=== PATIENT | female | born 1970 | race Caucasian/White ===

== ENCOUNTER 2018-10-22 07:48 | Emergency (ER) | payer OTHER ==
[~2018-10-22] VITALS: Ht 175.3 cm; Wt 136.1 kg
[~2018-10-22 07:48] MED LIST: ABAT250V; ACETAMINOPHEN; ALPR.5; AMOX500 PO; ARIP15; AZIT250 PO; BACL10 PO; BENZ100A PO; BUTASPCAFT PO; CEPH500 PO; CIPR500 PO; CLAR500 PO; CRUTCH4 USE; CYCL10 PO; Cleocin HCl300 MG PO; DIPH50; DIPH50 PO; DOCU100 PO; DOXY100 PO; DULO30; DULO30 PO; Dicyclomine HCl10 MG PO; Flomax0.4 MG PO; GABA300 PO; HYDACE5 PO; HYDACE5325 PO; HYDHOMSY PO; HYDROCODONE; IBUP600 PO; IBUP800 PO; IBUPROFEN; KETO10 PO; LANS15EC PO; LIDO2L MM; META800 PO; METF500 PO; METO25 PO; NORT25 PO; Naprosyn500 MG PO; Norco 5-325 Ta1 EACH PO; OMEP20ER PO; OXYACE5T PO; PROM25 PO; Prednisone20 MG PO; RANI150EL PO; RXHYDACE PO; SERT100; SUMA25 PO; TAMS.4ER PO; TOPI100 PO; Ultram50 MG PO; Zofran Odt4 MG SL
[2018-10-22] MEDS ORDERED: Zofran4 MG PO (13:02)
[2018-10-22] MEDS ORDERED: Augmentin 875-1 EACH PO (13:02)
== END 2018-10-22 13:18 | disposition home or self-care (01) ==
LOC: ER 07:48
DX: N61.1 Abscess of the breast and nipple (principal); G43.909 Migraine, unspecified, not intractable, without status migrainosus; E11.9 Type 2 diabetes mellitus without complications; F17.210 Nicotine dependence, cigarettes, uncomplicated; Z88.0 Allergy status to penicillin; Z88.5 Allergy status to narcotic agent; Z79.899 Other long term (current) drug therapy
CPT/HCPCS: 19020; 99283-25

== ENCOUNTER 2018-10-24 11:56 | Emergency (ER) | payer SELFPAY ==
[~2018-10-24] VITALS: Ht 170.2 cm; Wt 136.1 kg
[~2018-10-24 11:56] MED LIST changes: +Augmentin 875-1 EACH PO; +Zofran4 MG PO
== END 2018-10-24 13:40 | disposition home or self-care (01) ==
LOC: ER 11:56
DX: N61.1 Abscess of the breast and nipple (principal); R03.0 Elevated blood-pressure reading, without diagnosis of hypertension; G43.909 Migraine, unspecified, not intractable, without status migrainosus; M54.9 Dorsalgia, unspecified; G89.29 Other chronic pain; F17.210 Nicotine dependence, cigarettes, uncomplicated; Z88.0 Allergy status to penicillin; Z88.6 Allergy status to analgesic agent; Z88.5 Allergy status to narcotic agent; Z88.8 Allergy status to other drugs, medicaments and biological substances
CPT/HCPCS: 99282

== ENCOUNTER 2019-12-24 14:23 | Emergency (ER) | payer SELFPAY ==
[~2019-12-24] VITALS: Ht 172.7 cm; Wt 145.2 kg
[2019-12-24 14:57] LABS: BASOPHILS ABSOLUTE AUTO 0.07 K/mm3 (0.00-0.23); BASOPHILS PERCENT AUTO 1 % (0-2); EOSINOPHILS ABSOLUTE AUTO 0.24 K/mm3 (0.00-0.68); EOSINOPHILS PERCENT AUTO 2 % (0-6); Hematocrit 43.5 % (33.0-51.0); IMMATURE GRAN ABSOLUTE AUTO 0.03 K/mm3 (0.00-0.10); IMMATURE GRAN PERCENT AUTO 0 % (0-1); LYMPHOCYTES ABSOLUTE AUTO 2.67 K/mm3 (0.84-5.20); LYMPHOCYTES PERCENT AUTO 23 % (21-46); MONOCYTES ABSOLUTE AUTO 0.77 K/mm3 (0.16-1.47); MONOCYTES PERCENT AUTO 7 % (4-13); Mean Corpuscular HGB 28.6 pg (26.0-34.0); Mean Corpuscular HGB Conc 32.2 g/dL (31.5-36.5); Mean Corpuscular Volume 89 fL (80-100); Mean Platelet Volume 10.3 fL (9.1-12.4); NEUTROPHILS ABSOLUTE AUTO 7.63 K/mm3 (1.96-9.15); NEUTROPHILS PERCENT AUTO 67 % (41-73); Platelet Count 355 K/mm3 (150-400); RDW Standard Deviation 42.4 fL (35.1-46.3); White Blood Cell Count 11.41 K/mm3 (4.00-11.30)
[2019-12-24 15:14] LABS: Alanine Aminotransfer (ALT/SGP 43 U/L (12-78); Albumin, Blood 3.5 g/dL (3.4-5.0); Albumin/Globulin Ratio 0.8 (0.8-1.8); Alk Phos 107 U/L (50-136); Anion Gap 5 mmol/L (6-16); Aspartate Aminotrans (AST/SGOT 29 U/L (12-37); Bilirubin, Total 0.2 mg/dL (0.1-1.0); Blood Urea Nitrogen 12 mg/dL (8-24); Bun/Creatinine Ratio 19.1 (12.0-20.0); CO2, Blood 26 mmol/L (21-32); Calcium, Blood 8.8 mg/dL (8.5-10.1); Chloride, Blood 108 mmol/L (98-108); Creatinine, Blood 0.63 mg/dL (0.40-1.00); Globulin, Blood 4.2 g/dL (2.2-4.0); Glomerular Filtration Rate >60 (60-); Glucose, Blood 251 mg/dL (70-99); Potassium, Blood 4.3 mmol/L (3.5-5.5); Sodium, Blood 139 mmol/L (136-145); Total Protein, Blood 7.7 g/dL (6.4-8.2)
[2019-12-24 16:03] LABS: Influenza A Negative (NEGATIVE); Influenza B Negative (NEGATIVE)
[2019-12-24] MEDS ORDERED: AZIT250 PO (16:33)
[2019-12-24] MEDS ORDERED: METPRE4DP PO (16:33)
[2019-12-24] MEDS ORDERED: BENZ100A PO (16:33)
[2019-12-24] MEDS ORDERED: Ventolin/Prove6.7 GM INH (16:33)
== END 2019-12-24 17:19 | disposition home or self-care (01) ==
LOC: ER 14:23
PROVIDERS: Physician Assistant
DX: R05 Cough (principal); R73.9 Hyperglycemia, unspecified; G43.909 Migraine, unspecified, not intractable, without status migrainosus; F17.210 Nicotine dependence, cigarettes, uncomplicated; Z88.0 Allergy status to penicillin; Z79.899 Other long term (current) drug therapy
CPT/HCPCS: 36415; 71046; 80053; 83036; 84484; 85025; 87804; 93005; 93010; 94640; 96361; 96374; 99284-25; J2930; J7030

== ENCOUNTER 2021-09-24 22:49 | Emergency (ER) | payer SELFPAY ==
[~2021-09-24] VITALS: Ht 170.2 cm; Wt 140.6 kg
[~2021-09-24 22:49] MED LIST changes: +Bactrim Ds Tab1 EACH PO; +METPRE4DP PO; +Robaxin-750750 MG PO; +Roxicodone5 MG PO; +Ventolin/Prove6.7 GM INH
[2021-09-25] MEDS ORDERED: CEPH500 PO (00:42)
== END 2021-09-25 01:11 | disposition home or self-care (01) ==
LOC: ER 22:49
DX: L03.011 Cellulitis of right finger (principal); G43.909 Migraine, unspecified, not intractable, without status migrainosus; F17.210 Nicotine dependence, cigarettes, uncomplicated; Z88.0 Allergy status to penicillin; Z88.6 Allergy status to analgesic agent; Z88.5 Allergy status to narcotic agent; Z91.048 Other nonmedicinal substance allergy status
CPT/HCPCS: 10060; 99282-25; A9270

== ENCOUNTER 2021-10-06 14:39 | Emergency (ER) | payer SELFPAY ==
[~2021-10-06] VITALS: Ht 170.2 cm; Wt 136.1 kg
[2021-10-06] MEDS ORDERED: CLIN300 PO (15:48)
== END 2021-10-06 16:06 | disposition home or self-care (01) ==
LOC: ER 14:39
DX: L03.011 Cellulitis of right finger (principal); G43.909 Migraine, unspecified, not intractable, without status migrainosus; Z88.0 Allergy status to penicillin; F17.210 Nicotine dependence, cigarettes, uncomplicated
CPT/HCPCS: 10060; 99282-25; A9270

== ENCOUNTER 2021-12-12 09:49 | Emergency (ER) | payer SELFPAY ==
[~2021-12-12] VITALS: Ht 172.7 cm; Wt 142.9 kg
[~2021-12-12 09:49] MED LIST changes: +CLIN300 PO
[2021-12-12] MEDS ORDERED: Zovirax Cream 5%2 GM TOP (10:44)
== END 2021-12-12 11:00 | disposition home or self-care (01) ==
LOC: ER 09:49
DX: B00.89 Other herpesviral infection (principal); G43.909 Migraine, unspecified, not intractable, without status migrainosus; E11.9 Type 2 diabetes mellitus without complications; Z88.0 Allergy status to penicillin; Z88.8 Allergy status to other drugs, medicaments and biological substances; F17.210 Nicotine dependence, cigarettes, uncomplicated
CPT/HCPCS: 99282

== ENCOUNTER 2022-06-17 09:13 | Emergency (ER) | payer SELFPAY ==
[~2022-06-17] VITALS: Ht 172.7 cm; Wt 129.3 kg
[~2022-06-17 09:13] MED LIST changes: +Zovirax Cream 5%2 GM TOP
[2022-06-17 10:13] LABS: Source, Urine Clean Catch
[2022-06-17 10:23] LABS: Appearance, Urine Clear (Clear); Bilirubin, Urine Neg (Neg); Blood, Urine Neg (Neg); Color, Urine Yellow (P-Yellow); Glucose Qualitative, Urine 4+ (Neg); Ketones, Urine 1+ (Neg); Leukocyte Esterase, Urine Neg (Neg); Nitrite, Urine Neg (Neg); Protein, Urine Neg (Neg); Urobilinogen, Urine NORM (Normal)
[2022-06-17] MEDS ORDERED: FLUC150A PO (11:03)
== END 2022-06-17 11:08 | disposition home or self-care (01) ==
LOC: ER 09:13
PROVIDERS: Student in an Organized Health Care Education/Training Program
DX: B37.3 Candidiasis of vulva and vagina (principal); E11.9 Type 2 diabetes mellitus without complications; F17.210 Nicotine dependence, cigarettes, uncomplicated
CPT/HCPCS: 81003; A9270

== ENCOUNTER 2022-07-28 11:49 | Emergency (ER) | payer SELFPAY ==
[~2022-07-28] VITALS: Ht 170.2 cm; Wt 130.2 kg
[~2022-07-28 11:49] MED LIST changes: +FLUC150A PO
[2022-07-28] MEDS ORDERED: ONDA4ODT MM (14:55)
== END 2022-07-28 15:14 | disposition home or self-care (01) ==
LOC: ER 11:49
DX: K52.9 Noninfective gastroenteritis and colitis, unspecified (principal); F17.210 Nicotine dependence, cigarettes, uncomplicated; Z20.822 Contact with and (suspected) exposure to COVID-19; Z88.0 Allergy status to penicillin; Z88.5 Allergy status to narcotic agent; Z88.8 Allergy status to other drugs, medicaments and biological substances; Z91.09 Other allergy status, other than to drugs and biological substances
CPT/HCPCS: 99284; A9270

== ENCOUNTER 2022-08-17 15:06 | Emergency (ER) | payer SELFPAY ==
[~2022-08-17] VITALS: Ht 170.2 cm; Wt 129.3 kg
[~2022-08-17 15:06] MED LIST changes: +ONDA4ODT MM
[2022-08-17] MEDS ORDERED: CEPH500 PO (16:26)
== END 2022-08-17 16:38 | disposition home or self-care (01) ==
LOC: ER 15:06
DX: N61.0 Mastitis without abscess (principal); F17.210 Nicotine dependence, cigarettes, uncomplicated; Z88.0 Allergy status to penicillin; Z88.6 Allergy status to analgesic agent; Z88.5 Allergy status to narcotic agent; Z88.8 Allergy status to other drugs, medicaments and biological substances; Z91.048 Other nonmedicinal substance allergy status
CPT/HCPCS: A9270

== ENCOUNTER 2023-02-11 17:25 | Emergency (ER) | payer SELFPAY ==
[~2023-02-11] VITALS: Ht 170.2 cm; Wt 123.4 kg
[2023-02-11 18:54] LABS: BASOPHILS ABSOLUTE AUTO 0.05 K/mm3 (0.00-0.23); BASOPHILS PERCENT AUTO 0 % (0-2); EOSINOPHILS ABSOLUTE AUTO 0.02 K/mm3 (0.00-0.68); EOSINOPHILS PERCENT AUTO 0 % (0-6); Hematocrit 46.2 % (33.0-51.0); Hemoglobin 15.7 g/dL (11.5-16.0); IMMATURE GRAN ABSOLUTE AUTO 0.05 K/mm3 (0.00-0.10); IMMATURE GRAN PERCENT AUTO 0 % (0-1); LYMPHOCYTES ABSOLUTE AUTO 2.82 K/mm3 (0.84-5.20); LYMPHOCYTES PERCENT AUTO 24 % (21-46); MONOCYTES ABSOLUTE AUTO 1.18 K/mm3 (0.16-1.47); MONOCYTES PERCENT AUTO 10 % (4-13); Mean Corpuscular Volume 85 fL (80-100); Mean Platelet Volume 9.9 fL (9.1-12.4); NEUTROPHILS PERCENT AUTO 66 % (41-73); Platelet Count 280 K/mm3 (150-400); RDW Coefficient Variation 12.6 % (11.7-14.2); RDW Standard Deviation 39.2 fL (35.1-46.3); Red Blood Cell Count 5.42 M/mm3 (3.80-5.20); White Blood Cell Count 12.02 K/mm3 (4.00-11.30)
[2023-02-11 19:01] LABS: Influenza A, PCR NEGATIVE (NEGATIVE); Influenza B, PCR NEGATIVE (NEGATIVE); Resp Syncytial Virus, PCR NEGATIVE (NEGATIVE); SARS-Cov-2 (COVID-19) PCR, MMC NEGATIVE (NEGATIVE)
[2023-02-11 19:10] LABS: Albumin/Globulin Ratio 0.7 (0.8-1.8); Bilirubin, Total 0.5 mg/dL (0.1-1.0); Bun/Creatinine Ratio 26.8 (12.0-20.0); Calcium, Blood 8.7 mg/dL (8.5-10.1); Creatinine, Blood 0.52 mg/dL (0.40-1.00); Globulin, Blood 4.2 g/dL (2.2-4.0); Magnesium, Blood 1.9 mg/dL (1.6-2.4); Potassium, Blood 4.4 mmol/L (3.5-5.5); Total Protein, Blood 7.2 g/dL (6.4-8.2)
[2023-02-11] MEDS ORDERED: Diflucan100 MG PO (20:17)
[2023-02-11] MEDS ORDERED: BENZ100A PO (20:17)
[2023-02-11] MEDS ORDERED: AMOCLA875 PO (20:17)
[2023-02-11 20:30] VITALS: BP 109/77
== END 2023-02-11 20:45 | disposition home or self-care (01) ==
LOC: ER 17:25
PROVIDERS: Physician Assistant
DX: J06.9 Acute upper respiratory infection, unspecified (principal); K04.7 Periapical abscess without sinus; J40 Bronchitis, not specified as acute or chronic; Z20.822 Contact with and (suspected) exposure to COVID-19; Z88.0 Allergy status to penicillin; Z88.5 Allergy status to narcotic agent; Z88.1 Allergy status to other antibiotic agents; Z91.048 Other nonmedicinal substance allergy status; G43.909 Migraine, unspecified, not intractable, without status migrainosus; F17.210 Nicotine dependence, cigarettes, uncomplicated
CPT/HCPCS: 0241U; 36415; 71046; 80053; 83735; 85025; 86308; 96374; 99283-25; A9270; J1885

== ENCOUNTER 2023-04-28 11:20 | Emergency (ER) | payer SELFPAY ==
[~2023-04-28] VITALS: Ht 172.7 cm; Wt 118.8 kg
[~2023-04-28 11:20] MED LIST changes: +AMOCLA875 PO; +Diflucan100 MG PO
[2023-04-28] MEDS ORDERED: SULTRIDS PO (14:55)
[2023-05-05] MEDS ORDERED: Clindamycin HC300 MG PO (14:48)
[2023-05-05] MEDS ORDERED: INSULANI SC (14:49)
[2023-05-05] MEDS ORDERED: LORCET 5-325 M1 EACH PO (14:49)
[2023-05-05] MEDS ORDERED: METF500 PO (14:50)
[2023-05-05] MEDS ORDERED: VISBIOME 112.51 EACH PO (14:50)
[2023-05-05] MEDS ORDERED: HUMALOG KW100 UNIT/1 SC (14:53)
[2023-05-05] MEDS ORDERED: Microlet1 EACH (14:54)
== END 2023-04-28 15:15 | disposition home or self-care (01) ==
LOC: ER 11:20
DX: N76.4 Abscess of vulva (principal); Z88.0 Allergy status to penicillin; Z88.5 Allergy status to narcotic agent; Z91.048 Other nonmedicinal substance allergy status; G43.909 Migraine, unspecified, not intractable, without status migrainosus; F17.210 Nicotine dependence, cigarettes, uncomplicated
CPT/HCPCS: 56405; 96372-59; 99283-25; A9270; J1885

== ENCOUNTER → 2023-05-23 | Outpatient (CLI) | payer SELFPAY ==
[~2023-05-23] MED LIST changes: +Clindamycin HC300 MG PO; +HUMALOG KW100 UNIT/1 SC; +INSULANI SC; +LORCET 5-325 M1 EACH PO; +Microlet1 EACH; +SULTRIDS PO; +VISBIOME 112.51 EACH PO
[2023-05-23 15:46] LABS: Candida species (DNA Probe) Negative (NEGATIVE); G. vaginalis (DNA Probe) Negative (NEGATIVE); T. vaginalis (DNA Probe) Negative (NEGATIVE)
== END | disposition home or self-care (01) ==
LOC: LAB 12:08 → LAB SHORT 12:08
PROVIDERS: Physician Assistant
DX: L29.3 Anogenital pruritus, unspecified (principal); R30.0 Dysuria
CPT/HCPCS: 87077; 87086; 87186; 87480; 87510; 87660

== ENCOUNTER 2023-08-30 12:59 | Inpatient (IN) | payer SELFPAY ==
[~2023-08-30] VITALS: Ht 172.7 cm; Wt 117.5 kg
[2023-08-30 15:06] LABS: Albumin/Globulin Ratio 0.6 (0.8-1.8); Bilirubin, Total 0.3 mg/dL (0.1-1.0); Bun/Creatinine Ratio 18.4 (12.0-20.0); Calcium, Blood 8.8 mg/dL (8.5-10.1); Creatinine, Blood 0.71 mg/dL (0.40-1.00); Globulin, Blood 4.9 g/dL (2.2-4.0); Potassium, Blood 3.9 mmol/L (3.5-5.5); Total Protein, Blood 7.9 g/dL (6.4-8.2)
[2023-08-30 18:15] LABS: BASOPHILS ABSOLUTE AUTO 0.09 K/mm3 (0.00-0.23); BASOPHILS PERCENT AUTO 1 % (0-2); EOSINOPHILS ABSOLUTE AUTO 0.35 K/mm3 (0.00-0.68); EOSINOPHILS PERCENT AUTO 2 % (0-6); Hematocrit 37.8 % (33.0-51.0); Hemoglobin 12.5 g/dL (11.5-16.0); IMMATURE GRAN ABSOLUTE AUTO 0.07 K/mm3 (0.00-0.10); IMMATURE GRAN PERCENT AUTO 0 % (0-1); LYMPHOCYTES ABSOLUTE AUTO 3.36 K/mm3 (0.84-5.20); LYMPHOCYTES PERCENT AUTO 21 % (21-46); MONOCYTES ABSOLUTE AUTO 1.17 K/mm3 (0.16-1.47); MONOCYTES PERCENT AUTO 7 % (4-13); Mean Corpuscular HGB 28.3 pg (26.0-34.0); Mean Corpuscular HGB Conc 33.1 g/dL (31.5-36.5); Mean Corpuscular Volume 86 fL (80-100); Mean Platelet Volume 9.5 fL (9.1-12.4); NEUTROPHILS ABSOLUTE AUTO 11.23 K/mm3 (1.96-9.15); NEUTROPHILS PERCENT AUTO 69 % (41-73); Platelet Count 358 K/mm3 (150-400); RDW Coefficient Variation 12.8 % (11.7-14.2); RDW Standard Deviation 39.8 fL (35.1-46.3); Red Blood Cell Count 4.42 M/mm3 (3.80-5.20); White Blood Cell Count 16.27 K/mm3 (4.00-11.30)
[2023-08-30 20:34] VITALS: BP 109/62
[2023-08-30] MEDS ORDERED: TRAZ100 PO (21:20)
[2023-08-30] MEDS ORDERED: GABA100 PO (21:21)
[2023-08-30] MEDS ORDERED: ATOR40TA PO (21:21)
[2023-08-30] MEDS ORDERED: VENL150ER PO (21:22)
--- NOTE | 2023-08-31 04:37 | NUR ---
SHIFT SUMMARY PATIENT IS ALERT AND ORIENTED. PATIENT HAS HAD NO ACUTE EVENTS THIS SHIFT. VITAL SIGNS REVIEWED. PATIENT IS ADMITTED FOR CELLULITIS. PATIENT REPORTS PAIN THIS SHIFT. MEDICATED PER EMAR. PATIENT HAS HAD NO COMPLAINTS OF SOB, NAUSEA OR VOMITTING. PATIENT IS IND IN ROOM. IV FLUIDS INFUSING ORDERED. BED IN LOCKED AND LOWEST POSITION. CALL LIGHT IN PLACE. WILL MONITOR UNTIL SHIFT CHANGE.
[2023-08-31 04:59] VITALS: BP 119/72
[2023-08-31 06:28] LABS: BASOPHILS ABSOLUTE AUTO 0.06 K/mm3 (0.00-0.23); BASOPHILS PERCENT AUTO 1 % (0-2); EOSINOPHILS ABSOLUTE AUTO 0.43 K/mm3 (0.00-0.68); EOSINOPHILS PERCENT AUTO 4 % (0-6); Hematocrit 37.2 % (33.0-51.0); Hemoglobin 12.1 g/dL (11.5-16.0); IMMATURE GRAN ABSOLUTE AUTO 0.04 K/mm3 (0.00-0.10); IMMATURE GRAN PERCENT AUTO 0 % (0-1); LYMPHOCYTES ABSOLUTE AUTO 2.69 K/mm3 (0.84-5.20); LYMPHOCYTES PERCENT AUTO 24 % (21-46); MONOCYTES ABSOLUTE AUTO 1.01 K/mm3 (0.16-1.47); MONOCYTES PERCENT AUTO 9 % (4-13); Mean Corpuscular HGB 27.9 pg (26.0-34.0); Mean Corpuscular HGB Conc 32.5 g/dL (31.5-36.5); Mean Corpuscular Volume 86 fL (80-100); Mean Platelet Volume 9.5 fL (9.1-12.4); NEUTROPHILS ABSOLUTE AUTO 6.98 K/mm3 (1.96-9.15); NEUTROPHILS PERCENT AUTO 62 % (41-73); Platelet Count 345 K/mm3 (150-400); RDW Coefficient Variation 12.7 % (11.7-14.2); RDW Standard Deviation 39.7 fL (35.1-46.3); Red Blood Cell Count 4.34 M/mm3 (3.80-5.20); White Blood Cell Count 11.21 K/mm3 (4.00-11.30)
[2023-08-31 06:53] LABS: Bun/Creatinine Ratio 21.2 (12.0-20.0); Calcium, Blood 8.5 mg/dL (8.5-10.1); Creatinine, Blood 0.71 mg/dL (0.40-1.00); Magnesium, Blood 2.2 mg/dL (1.6-2.4); Potassium, Blood 3.8 mmol/L (3.5-5.5)
[2023-08-31 07:38] VITALS: BP 119/65
--- NOTE | 2023-08-31 09:00 | NUR ---
Pt laying in bed awake a/ox4, pleasant and coopertive with care, follows commands well, reports pain, will medicate as ordered, lungs are clear t/o, resp even and unlabored, no cough noted, hrr, no edema noted, ppp+2, cap refill <3 sec, vs stable, afebrile, iv sites are clear, one to hand blew, was removed intact still has 22 to lfa, flushes well, called pcu for power glide as she has vanco, btx4, abd flat soft nontender, voids without diff, skin c/w/d, except right breast is very red on the top, was outlined, mary nielson call light in reach.
[2023-08-31 15:48] VITALS: BP 151/80
--- NOTE | 2023-08-31 18:05 | NUR ---
pt responded well to fentanyl, 25mcg controled her pain, also gave percocet several times, she is in the shower at this time, her spouce is her with her. redness on breast is less red this early evening. call light in reach.
--- NOTE | 2023-08-31 18:48 | NUR ---
pt states breast opened up and started draining pus when in the hot shower, notified Dr. Lopez and sent a culture. no further changes, call light in reach.
[2023-08-31 20:03] VITALS: BP 159/104
[2023-09-01 04:29] VITALS: BP 134/71
--- NOTE | 2023-09-01 04:56 | NUR ---
SHIFT SUMMARY PATIENT IS ALERT AND ORIENTED. PATIENT HAS HAD NO ACUTE EVENTS THIS SHIFT. VITAL SIGNS REVIEWED. PATIENT HAS BEEN IND AND COMMUNICATIVE OF NEEDS EFFECTIVELY. PATIENT HAS COMPLAINED OF PAIN AND MEDICATED PER EMAR. PATIENT HAS NOT COMPLAINED OF SOB, NAUSEA, VOMITTING THIS SHIFT. BED IN LOCKED AND LOWEST POSITION. CALL LIGHT IN PLACE. WILL MONITOR UNTIL SHIFT CHANGE.
[2023-09-01 07:16] VITALS: BP 138/97
[2023-09-01 09:33] LABS: BASOPHILS ABSOLUTE AUTO 0.07 K/mm3 (0.00-0.23); BASOPHILS PERCENT AUTO 1 % (0-2); EOSINOPHILS ABSOLUTE AUTO 0.42 K/mm3 (0.00-0.68); EOSINOPHILS PERCENT AUTO 5 % (0-6); Hematocrit 38.3 % (33.0-51.0); Hemoglobin 12.6 g/dL (11.5-16.0); IMMATURE GRAN ABSOLUTE AUTO 0.04 K/mm3 (0.00-0.10); IMMATURE GRAN PERCENT AUTO 0 % (0-1); LYMPHOCYTES ABSOLUTE AUTO 2.73 K/mm3 (0.84-5.20); LYMPHOCYTES PERCENT AUTO 29 % (21-46); MONOCYTES PERCENT AUTO 8 % (4-13); Mean Corpuscular HGB 28.4 pg (26.0-34.0); Mean Corpuscular HGB Conc 32.9 g/dL (31.5-36.5); Mean Corpuscular Volume 86 fL (80-100); Mean Platelet Volume 9.6 fL (9.1-12.4); NEUTROPHILS ABSOLUTE AUTO 5.31 K/mm3 (1.96-9.15); NEUTROPHILS PERCENT AUTO 57 % (41-73); Platelet Count 368 K/mm3 (150-400); RDW Coefficient Variation 12.6 % (11.7-14.2); RDW Standard Deviation 39.8 fL (35.1-46.3); Red Blood Cell Count 4.44 M/mm3 (3.80-5.20); White Blood Cell Count 9.27 K/mm3 (4.00-11.30)
[2023-09-01 10:00] LABS: Anion Gap 5 mmol/L (6-16); Blood Urea Nitrogen 11 mg/dL (8-24); Bun/Creatinine Ratio 18.9 (12.0-20.0); CO2, Blood 25 mmol/L (21-32); Calcium, Blood 8.2 mg/dL (8.5-10.1); Chloride, Blood 110 mmol/L (98-108); Creatinine, Blood 0.58 mg/dL (0.40-1.00); Glomerular Filtration Rate 110 (60-); Glucose, Blood 206 mg/dL (70-99); Potassium, Blood 4.1 mmol/L (3.5-5.5); Sodium, Blood 140 mmol/L (136-145)
[2023-09-01 15:47] VITALS: BP 151/108
--- NOTE | 2023-09-01 18:04 | NUR ---
SHIFT SUMMARY NO ACUTE CHANGES THIS SHIFT. PAIN MANAGED W/ OXY, MORPHINE, AND TYLENOL. CALL LIGHT WITHIN REACH AND PT ABLE TO MAKE NEEDS KNOWN.
[2023-09-01 19:34] VITALS: BP 120/71
--- NOTE | 2023-09-02 04:03 | NUR ---
SHIFT SUMMARY PATIENT IS ALERT AND ORIENTED. PATIENT HAS HAD NO ACUTE EVENTS THIS SHIFT. VITAL SIGNS REVIEWED. PATIENT HAS BEEN MEDICATED FOR PAIN MULTIPLE TIMES THIS SHIFT FOR CELLULITIS. PATIENT HAS NOT COMPLAINED OF SOB, NAUSEA, OR VOMITTING THIS SHIFT. IV FLUIDS INFUSING ORDERED. BED IN LOCKED AND LOWEST POSITION. CALL LIGHT IN PLACE.
[2023-09-02 04:37] VITALS: BP 110/79
[2023-09-02 08:03] VITALS: BP 132/90
--- NOTE | 2023-09-02 14:27 | NUR ---
pt complains of pain, medicated as ordered, and set up heating pad. no further needs at this time. call light in reach.
[2023-09-02 15:12] VITALS: BP 153/92
--- NOTE | 2023-09-02 18:11 | NUR ---
pt started on a heating pad for comfort, no drainage today, will take a shower in a bit, no changes in the shade of red on her breast. call light in reach.
[2023-09-02 19:44] VITALS: BP 164/105
[2023-09-03 03:31] VITALS: BP 130/67
--- NOTE | 2023-09-03 04:57 | NUR ---
SHIFT SUMMARY NOC PT A/O X 4. PLEASANT AND COOPERATIVE WITH CARE. DURING EVENING VS PT REPORTED EXTREME PAIN THAT FELT LIKE A SHOCK IN ARM, PT HAS CELLULITIS IN R BREAST. PT WAS MEDICATED PER EMAR. PT IS RECEIVING CEFEPIME/VANCO FOR INFECTION THAT LAB IS STILL PENDING ON. PT HAS PG IN [place] INFUSING NS @ 100 ML/HR. PT HS CBG 138 AND A SNACK AND 40 UNITS SCHEDULED LONG ACTING INSULIN GIVEN. PT HAS BORDER AROUND INFECTION SITE, WHICH APPEARS DARK RED AND PT STATES THAT IS MORE PAINFUL. PT IS IN CONTACT ISOLATION FOR HX OF MRSA. PT IS CURRENTLY RESTING WITH BED IN LOWEST POSITION, AND CALL LIGHT WITHIN REACH.
[2023-09-03 05:47] LABS: BASOPHILS ABSOLUTE AUTO 0.05 K/mm3 (0.00-0.23); BASOPHILS PERCENT AUTO 1 % (0-2); EOSINOPHILS ABSOLUTE AUTO 0.34 K/mm3 (0.00-0.68); EOSINOPHILS PERCENT AUTO 5 % (0-6); Hemoglobin 11.4 g/dL (11.5-16.0); IMMATURE GRAN ABSOLUTE AUTO 0.03 K/mm3 (0.00-0.10); IMMATURE GRAN PERCENT AUTO 0 % (0-1); LYMPHOCYTES ABSOLUTE AUTO 2.26 K/mm3 (0.84-5.20); LYMPHOCYTES PERCENT AUTO 30 % (21-46); MONOCYTES ABSOLUTE AUTO 0.61 K/mm3 (0.16-1.47); MONOCYTES PERCENT AUTO 8 % (4-13); Mean Corpuscular HGB 27.9 pg (26.0-34.0); Mean Corpuscular HGB Conc 32.6 g/dL (31.5-36.5); Mean Corpuscular Volume 86 fL (80-100); Mean Platelet Volume 9.8 fL (9.1-12.4); NEUTROPHILS ABSOLUTE AUTO 4.18 K/mm3 (1.96-9.15); NEUTROPHILS PERCENT AUTO 56 % (41-73); Platelet Count 367 K/mm3 (150-400); RDW Coefficient Variation 12.7 % (11.7-14.2); RDW Standard Deviation 39.6 fL (35.1-46.3); Red Blood Cell Count 4.08 M/mm3 (3.80-5.20); White Blood Cell Count 7.47 K/mm3 (4.00-11.30)
[2023-09-03 07:47] VITALS: BP 149/91
[2023-09-03 08:17] LABS: Anion Gap 15 mmol/L (6-16); Blood Urea Nitrogen 15 mg/dL (8-24); Bun/Creatinine Ratio 22.8 (12.0-20.0); CO2, Blood 14 mmol/L (21-32); Calcium, Blood 8.5 mg/dL (8.5-10.1); Chloride, Blood 112 mmol/L (98-108); Creatinine, Blood 0.66 mg/dL (0.40-1.00); Glomerular Filtration Rate 106 (60-); Glucose, Blood 154 mg/dL (70-99); Phosphorus, Blood 4.6 mg/dL (2.5-4.9); Potassium, Blood 4.3 mmol/L (3.5-5.5); Sodium, Blood 141 mmol/L (136-145)
[2023-09-03 10:53] LABS: Vancomycin, Trough 18.4 ug/mL (5.0-10.0)
[2023-09-03 13:20] LABS: Albumin, Blood 2.7 g/dL (3.4-5.0)
[2023-09-03 15:56] VITALS: BP 132/93
--- NOTE | 2023-09-03 17:21 | NUR ---
PT TRANSFERRED TO [facility] VIA GURNY, BED TO BED TX RELATED TO PT IMMOBILITY. MEDICATED WITH ROXONOL 10MG PRIOR TO TX. CALLED REPORT TO ANAT AT 1445, PT TRANSPORTED 1545 WITH BAG OF BELONGINGS. CHECKED SKIN PRIOR TO TX AND CHANGED ATTENDS. NO REDNESS ON BOTTOM.
--- NOTE | 2023-09-03 19:48 | NUR ---
SUMMARY- PT A/O X4, INDEPENDANT IN THE ROOM, STEADY ON FEET. TOOK A SHOWER TODAY FOR 15MINUTES AND LET HOT WATER RUN OVER CHEST. ATTEMPTED TO PRESS THE BOIL, BUT STATES NOTHING CAME OUT. R BREAST REMAINS RED, RAISED AND WARM, PT STATES IT HAS IMPROVED AND SMALLER AND LESS HARD. PT STATES AREA VERY PAINFUL AND REQUESTING OXYCODONE 10MG Q4, ALTERNATING MORPHINE 4MG Q4. STATES THIS REGIMINE WORKS. BLOOD SUGARS STABLE. POWERLIDE FOR ABX. VOIDING, HAD BM TODAY. REPORTED ALL TO FABBY CORTES.
[2023-09-04 04:36] VITALS: BP 117/90
--- NOTE | 2023-09-04 06:16 | NUR ---
CLIFF VILLALPANDO, PT AT THIS TIME APPEARS TO BE ASLEEP. PT MEDICATED SEVERAL TIMES THIS NIGHT. PT ABLE TO GET UP SAFELY TO BR TO VOID BY SELF PT SNORRING VERY LIGHTLY WHEN ASLEEP. CALL LIGHT IN REACH.
[2023-09-04 07:15] VITALS: BP 149/92
[2023-09-04 15:15] VITALS: BP 148/112
--- NOTE | 2023-09-04 18:45 | NUR ---
SUMMARY- PT A/O X4, INDEPENDANT IN ROOM. CONT ABX FOR R BREAST CELLULITIS, NODULE SOFTER AND SMALLER, LESS RED, STILL HAS NOT POPPED. PAIN CONTROLLED WITH OXYCODONE 15MG APPROX Q4, AND ADDED TORADOL X 2 DOSES THIS SHIFT. HAS NOT NEEDED ANY IV MORPHINE FOR BTP. TOLERATING FOOD AND FLUID. REPORTED MIGRAINE THIS AM RADIATING INTO TEETH. STATES PAIN RESOLVED AFTER TORADOL AND TYLENOL GIVEN THIS AM. WILL REPORT TO FABBY CORTES.
[2023-09-04 19:52] VITALS: BP 131/87
[2023-09-05] VITALS (15 sets, daily range): BP systolic 121–188; BP diastolic 64–112
--- NOTE | 2023-09-05 02:54 | NUR ---
SHIFT SUMMERY, PT RESTING IN BED, PT ABLE TO GET UP BY SELF TO VOID. PT STEADY ON HER FEET. PT HAD WARM SHOWER TONIGHT. PT MEDICTED FOR PAIN. PT HAD BOSTON WELL BACK AND RIGHT BREAST PAIN. PT AT THIS TIME TRYING TO GO BACK TO SLEEP. PT MEDICATED WITH TORIDOL. CALL LIGHT IN REACH.
[2023-09-05 06:07] LABS: BASOPHILS ABSOLUTE AUTO 0.07 K/mm3 (0.00-0.23); BASOPHILS PERCENT AUTO 1 % (0-2); EOSINOPHILS ABSOLUTE AUTO 0.46 K/mm3 (0.00-0.68); EOSINOPHILS PERCENT AUTO 5 % (0-6); Hematocrit 36.4 % (33.0-51.0); Hemoglobin 11.6 g/dL (11.5-16.0); IMMATURE GRAN ABSOLUTE AUTO 0.06 K/mm3 (0.00-0.10); IMMATURE GRAN PERCENT AUTO 1 % (0-1); LYMPHOCYTES ABSOLUTE AUTO 2.93 K/mm3 (0.84-5.20); LYMPHOCYTES PERCENT AUTO 34 % (21-46); MONOCYTES ABSOLUTE AUTO 0.63 K/mm3 (0.16-1.47); MONOCYTES PERCENT AUTO 7 % (4-13); Mean Corpuscular HGB 27.9 pg (26.0-34.0); Mean Corpuscular HGB Conc 31.9 g/dL (31.5-36.5); Mean Corpuscular Volume 88 fL (80-100); Mean Platelet Volume 9.5 fL (9.1-12.4); NEUTROPHILS PERCENT AUTO 52 % (41-73); Platelet Count 367 K/mm3 (150-400); RDW Coefficient Variation 12.9 % (11.7-14.2); Red Blood Cell Count 4.16 M/mm3 (3.80-5.20); White Blood Cell Count 8.65 K/mm3 (4.00-11.30)
[2023-09-05 06:23] LABS: Albumin, Blood 2.4 g/dL (3.4-5.0); Anion Gap 1 mmol/L (6-16); Blood Urea Nitrogen 12 mg/dL (8-24); Bun/Creatinine Ratio 15.3 (12.0-20.0); CO2, Blood 31 mmol/L (21-32); Calcium, Blood 8.5 mg/dL (8.5-10.1); Chloride, Blood 112 mmol/L (98-108); Creatinine, Blood 0.79 mg/dL (0.40-1.00); Glomerular Filtration Rate 91 (60-); Glucose, Blood 151 mg/dL (70-99); Phosphorus, Blood 4.7 mg/dL (2.5-4.9); Potassium, Blood 4.2 mmol/L (3.5-5.5); Sodium, Blood 144 mmol/L (136-145)
--- NOTE | 2023-09-05 16:25 | NUR ---
LATE ENTRY/1600: PT TO OR [facility] FOR SURG ON R BREAST CELLULITIS ABCESS.
--- NOTE | 2023-09-05 18:11 | NUR ---
RETURNED FROM OR RECEIVED REPORT FROM SIM CORTES. PT TO ROOM, MADE COMFORTABLE. VSS. R BREAST I&D SITE DRESSING C/D/I. PT ALERT, AWAKE & HUNGRY. DINNER TRAY GIVEN TO PT.
--- NOTE | 2023-09-05 18:22 | NUR ---
SHIFT REPORT A&O X 4, VSS. IS PLEASANT & COOPERATIVE WITH ALL CARE. MEDICATED FOR PAIN PER EMAR WITH GOOD RELIEF STATED BY PT. TO SURG THIS AFTERNOON, RETURNED AFTER I&D OF R BREAST, DRESSING C/D/I. IS EATING DINNER. VSS. ON RA SATS 96-100%. IS INDEPENDENT IN THE ROOM FOR RESTROOM USE. CALL LIGHT WITHIN REACH, BED IN LOW POSITION.
--- NOTE | 2023-09-05 18:53 | NUR ---
WHEN PT TRANSFERED TO [address] FLOOR SHE AMBULATED TO BATHROOM FROM THE [facility]. I LET HER RN KNOW THAT SHE WAS IN THE BATHROOM . SHE AMBULATED WITH STEADY GAIT AND DENIES ANY TROUBLE
[2023-09-06 01:21] LABS: BASOPHILS ABSOLUTE AUTO 0.08 K/mm3 (0.00-0.23); BASOPHILS PERCENT AUTO 1 % (0-2); EOSINOPHILS ABSOLUTE AUTO 0.34 K/mm3 (0.00-0.68); EOSINOPHILS PERCENT AUTO 4 % (0-6); Hematocrit 34.5 % (33.0-51.0); Hemoglobin 11.3 g/dL (11.5-16.0); IMMATURE GRAN ABSOLUTE AUTO 0.08 K/mm3 (0.00-0.10); IMMATURE GRAN PERCENT AUTO 1 % (0-1); LYMPHOCYTES ABSOLUTE AUTO 2.79 K/mm3 (0.84-5.20); LYMPHOCYTES PERCENT AUTO 30 % (21-46); MONOCYTES ABSOLUTE AUTO 0.73 K/mm3 (0.16-1.47); MONOCYTES PERCENT AUTO 8 % (4-13); Mean Corpuscular HGB 28.3 pg (26.0-34.0); Mean Corpuscular HGB Conc 32.8 g/dL (31.5-36.5); Mean Corpuscular Volume 86 fL (80-100); Mean Platelet Volume 9.5 fL (9.1-12.4); NEUTROPHILS ABSOLUTE AUTO 5.44 K/mm3 (1.96-9.15); NEUTROPHILS PERCENT AUTO 58 % (41-73); Platelet Count 353 K/mm3 (150-400); RDW Standard Deviation 40.6 fL (35.1-46.3); White Blood Cell Count 9.46 K/mm3 (4.00-11.30)
[2023-09-06 01:38] LABS: Albumin, Blood 2.6 g/dL (3.4-5.0); Anion Gap 5 mmol/L (6-16); Blood Urea Nitrogen 10 mg/dL (8-24); CO2, Blood 30 mmol/L (21-32); Calcium, Blood 8.4 mg/dL (8.5-10.1); Chloride, Blood 107 mmol/L (98-108); Creatinine, Blood 0.72 mg/dL (0.40-1.00); Glomerular Filtration Rate 101 (60-); Glucose, Blood 187 mg/dL (70-99); Magnesium, Blood 2.2 mg/dL (1.6-2.4); Phosphorus, Blood 4.3 mg/dL (2.5-4.9); Potassium, Blood 3.9 mmol/L (3.5-5.5); Sodium, Blood 142 mmol/L (136-145); Vancomycin, Trough 19.3 ug/mL (5.0-10.0)
[2023-09-06 02:51] VITALS: BP 141/87
--- NOTE | 2023-09-06 04:03 | NUR ---
REPORT RECEVIED VERIFIED, A/O AND IN GOOD SPIRIT YET IN PAIN FROM INCISION, SO PAIN MEDICATED PER MAR. FAMILY AT BEDSIDE NO CHANGE IN CONDITION ASKING FOR MORE PAIN MEDICATION ENC PT TO HOLD UNTIL MEDICATION IS DUE. PT WELL AWARE OF MED TIMES AND WILL CALL WHEN THAT TIME IS UP. DRESSING TO RIGHT CHEST WALL DONE, MINIMAL DRAINAGE NOTED. PICC LINE DRESSING CHANGED. PT SLEEPING QUIETLY VSS, IS LOOKING FORWARD TO GOING HOME IN THE MORNING.
[2023-09-06 07:35] VITALS: BP 109/61
--- NOTE | 2023-09-06 10:16 | NUR ---
PT REVEALED THAT SHE HAD 2 PACKS OF CIGARETTES IN HER ROOM. SHE HANDED THEM TO STAFF. BOTH PACKS ARE LOCKED IN HER MED BOX. SHE HAD NO IGNITION SOURCE. ALREADY HANDED OVER HER VAPE & DRIVER RECRUITER ON ADMIT. SHE DID NOT ATTEMPT TO SMOKE NOR ASK TO GO OUT TO SMOKE.
--- NOTE | 2023-09-06 18:07 | NUR ---
SHIFT SUMMARY A&O X 4. IS INDEPENDENT IN THE ROOM FOR RESTROOM USE. MEDICATED PER EMAR FOR C/O PAIN WITH GOOD RELIEF STATED BY PT. DRESSING CHANGE DONE ON R BREAST, SONAM DRAIN INTACT, MINIMAL DRNG NOTED. ENCOURAGED PT TO NOT REACH INTO DRESSING AND TOUCH THE WOUND. IV ANTI BIOTICS INFUSED PER MD ORDER. PT C/O PG SITE & ARM SORE. HEAT PAD PLACED, PT STATES IT HELPS. PT ANTICIPATES DC HOME TOMORROW.
[2023-09-06 19:13] VITALS: BP 128/94
[2023-09-07 01:05] LABS: BASOPHILS ABSOLUTE AUTO 0.08 K/mm3 (0.00-0.23); BASOPHILS PERCENT AUTO 1 % (0-2); EOSINOPHILS PERCENT AUTO 5 % (0-6); Hematocrit 33.3 % (33.0-51.0); Hemoglobin 10.8 g/dL (11.5-16.0); IMMATURE GRAN ABSOLUTE AUTO 0.18 K/mm3 (0.00-0.10); IMMATURE GRAN PERCENT AUTO 2 % (0-1); LYMPHOCYTES ABSOLUTE AUTO 3.71 K/mm3 (0.84-5.20); LYMPHOCYTES PERCENT AUTO 35 % (21-46); MONOCYTES ABSOLUTE AUTO 0.75 K/mm3 (0.16-1.47); MONOCYTES PERCENT AUTO 7 % (4-13); Mean Corpuscular HGB 28.3 pg (26.0-34.0); Mean Corpuscular HGB Conc 32.4 g/dL (31.5-36.5); Mean Corpuscular Volume 87 fL (80-100); Mean Platelet Volume 9.6 fL (9.1-12.4); NEUTROPHILS ABSOLUTE AUTO 5.27 K/mm3 (1.96-9.15); NEUTROPHILS PERCENT AUTO 50 % (41-73); Platelet Count 347 K/mm3 (150-400); RDW Coefficient Variation 13.3 % (11.7-14.2); Red Blood Cell Count 3.82 M/mm3 (3.80-5.20); White Blood Cell Count 10.49 K/mm3 (4.00-11.30)
[2023-09-07 01:22] LABS: Albumin, Blood 2.5 g/dL (3.4-5.0); Anion Gap 2 mmol/L (6-16); Blood Urea Nitrogen 18 mg/dL (8-24); Bun/Creatinine Ratio 21.2 (12.0-20.0); CO2, Blood 30 mmol/L (21-32); Calcium, Blood 8.3 mg/dL (8.5-10.1); Chloride, Blood 108 mmol/L (98-108); Creatinine, Blood 0.85 mg/dL (0.40-1.00); Glomerular Filtration Rate 83 (60-); Glucose, Blood 183 mg/dL (70-99); Phosphorus, Blood 4.3 mg/dL (2.5-4.9); Potassium, Blood 4.5 mmol/L (3.5-5.5); Sodium, Blood 140 mmol/L (136-145); Vancomycin, Trough 19.6 ug/mL (5.0-10.0)
--- NOTE | 2023-09-07 04:01 | NUR ---
PT A/O TODAY VSS, ANTICIPATING GOING HOME TOMORROW. PAIN CONTINUES TO RIGHT BREAST WITH NO CHANGE IN INTENSITY. ASSISTED PT TO SHOWER, BED LINEN CHANGED AND ROOM STRAIGHTENED UP, WILL CONT TO MONITOR. PT REQUEST PAIN MEDICATION AT 0100 SCHEDUALED. 0245 PT ASSISTED TO BATHROOM, WHEN PT RETURNED SHE WAS COMPLAINING OF NOT BEING ABLE TO CATCH BREATH. O2 WAS AT 80 ROOM AIR SO PT PLACED ON 4L NC AND QUICKLY RETURNED TO 94%. WAS NOTIFIED AND STAT XRAY WAS DONE. THOUGH PT STILL TRYING TO CATCH BREATH O2 MAINTAINED 96 4 L. I WILL CONT TO KEEP PT ON CONT PULSE OX. ALL GAVE PT 2MG MSO4 TO POSSIBLE HELP CATCH BREATH.
--- NOTE | 2023-09-07 06:28 | NUR ---
CXR ORDERED FOR PT, MD ANETA GOMEZ INTO SEE PT, VERBAL ORDER FOR LASIX IMPLEMENTED, PT EDU DONE REGARDING LASIX AND GETTING UP TO BSC. CPAP ALSO ORDERED FOR PT. PT VERY SAD AND TEARFUL ABOUT NEEDING TO STAY ADDITIONAL STAY BUT IS IN AGREEANCE.
[2023-09-07 07:13] VITALS: BP 110/72
[2023-09-07 17:17] VITALS: BP 133/80
[2023-09-07 19:15] VITALS: BP 136/80
--- NOTE | 2023-09-07 19:47 | NUR ---
SHIFT SUMMARY A&O X 4, VSS. MEDICATED FOR C/O PAIN PER EMAR WITH GOOD RELIEF STATED BY PT. ECHO DONE AND REPORT ON CHART. IV ANTIBIOTICS GIVEN PER EMAR. R BREAST DRESSING CHANGED TODAY WITH SCANT BLOODY MILDLY PURULENT DRNG NOTED. SONAM DRAIN INTACT. PT IS INDEPENDENT IN THE ROOM FOR RESTROOM USE. IS PLEASANT & COOPERATIVE WITH ALL CARE. MANY VISITORS TODAY. WAS MORE ANXIOUS TODAY. RECEIVED A 1 TIME PO ATIVAN DOSE FROM . O2 SATS REMAIN >95%. PT WOULD WEAR 2 L'S O2 WHEN MORE ANXIOUS. IS ON CONT BIOX. CPAP AT [facility]. BED IN LOW POSITION, CALL LIGHT WITHIN REACH.
[2023-09-08 01:14] LABS: BASOPHILS ABSOLUTE AUTO 0.09 K/mm3 (0.00-0.23); BASOPHILS PERCENT AUTO 1 % (0-2); EOSINOPHILS PERCENT AUTO 4 % (0-6); Hematocrit 34.9 % (33.0-51.0); Hemoglobin 11.3 g/dL (11.5-16.0); IMMATURE GRAN ABSOLUTE AUTO 0.11 K/mm3 (0.00-0.10); IMMATURE GRAN PERCENT AUTO 1 % (0-1); LYMPHOCYTES ABSOLUTE AUTO 3.95 K/mm3 (0.84-5.20); LYMPHOCYTES PERCENT AUTO 39 % (21-46); MONOCYTES ABSOLUTE AUTO 0.75 K/mm3 (0.16-1.47); MONOCYTES PERCENT AUTO 7 % (4-13); Mean Corpuscular HGB 28.4 pg (26.0-34.0); Mean Corpuscular HGB Conc 32.4 g/dL (31.5-36.5); Mean Corpuscular Volume 88 fL (80-100); Mean Platelet Volume 9.5 fL (9.1-12.4); NEUTROPHILS ABSOLUTE AUTO 4.92 K/mm3 (1.96-9.15); NEUTROPHILS PERCENT AUTO 48 % (41-73); Platelet Count 371 K/mm3 (150-400); RDW Coefficient Variation 13.3 % (11.7-14.2); RDW Standard Deviation 42.5 fL (35.1-46.3); Red Blood Cell Count 3.98 M/mm3 (3.80-5.20); White Blood Cell Count 10.22 K/mm3 (4.00-11.30)
[2023-09-08 01:32] LABS: Albumin, Blood 2.8 g/dL (3.4-5.0); Anion Gap 4 mmol/L (6-16); Blood Urea Nitrogen 18 mg/dL (8-24); Bun/Creatinine Ratio 23.6 (12.0-20.0); CO2, Blood 29 mmol/L (21-32); Calcium, Blood 8.5 mg/dL (8.5-10.1); Chloride, Blood 108 mmol/L (98-108); Creatinine, Blood 0.76 mg/dL (0.40-1.00); Glomerular Filtration Rate 95 (60-); Glucose, Blood 144 mg/dL (70-99); Phosphorus, Blood 4.8 mg/dL (2.5-4.9); Potassium, Blood 4.3 mmol/L (3.5-5.5); Sodium, Blood 141 mmol/L (136-145); Vancomycin, Trough 20.6 ug/mL (5.0-10.0)
[2023-09-08 02:42] VITALS: BP 128/78
--- NOTE | 2023-09-08 06:03 | NUR ---
REPORT RECEIVED VERIFIED, PT DOING A LOT BETTER TODAY ANXIOUS TO GO HOME. NO SOB NO DISTRESS, CONSISTENTANTLY ASKING FOR PAIN MEDICATION EVERY 4 HOURS. HAD A VERY UNEVENTFUL DAY TODAY. 0550 PT GIVEN PAIN MEDICATION AND PLACED ON CPAP NOW SLEEPING.
[2023-09-08 07:10] VITALS: BP 111/80
[2023-09-08] MEDS ORDERED: ACET500 PO (13:37)
[2023-09-08] MEDS ORDERED: OXAYDO5 M1 PO (13:38)
[2023-09-08] MEDS ORDERED: SULTRIDS PO (13:39)
[2023-09-08] MEDS ORDERED: VISBIOME 112.51 EACH PO (13:43)
[2023-09-08] MEDS ORDERED: FURO20 PO (13:44)
--- NOTE | 2023-09-08 14:32 | NUR ---
DISCHARGE: PT D/C @1420 VIA WHEELCHAIR WITH SON. POWERGLIDE IN NELSON REMOVED W/O COMPLICATIONS. MED REC AND HARD SCRIPT FOR OXY SENT WITH PT. PT PREFERRED TO NOT HAVE MEDICATIONS FAXED D/T COUPON ISSUES BUT UNDERSTANDS HOW IMPORTANT IT IS TO CLAY MIXER ABX. NO QUESTIONS AT TIME OF DISCHARGE.
== END 2023-09-08 14:23 | disposition home or self-care (01) | DRG 855 ==
LOC: ER 12:59 → MEDS 18:32
PROVIDERS: Emergency Medicine; Family Medicine; Internal Medicine; Nurse Practitioner Acute Care; Surgery; ADMIT Family Medicine
PROC: 3E03329 Introduction of Other Anti-infective into Peripheral Vein, Percutaneous Approach (ICD-10-PCS; 2023-08-30)
PROC: 0HB5XZZ Excision of Chest Skin, External Approach (ICD-10-PCS; 2023-09-05)
PROC: 0H9T0ZZ Drainage of Right Breast, Open Approach (ICD-10-PCS; principal; 2023-09-05 16:00)
PROC: 5A09357 Assistance with Respiratory Ventilation, Less than 24 Consecutive Hours, Continuous Positive Airway Pressure (ICD-10-PCS; 2023-09-06)
DX: A41.02 Sepsis due to Methicillin resistant Staphylococcus aureus (principal); N61.1 Abscess of the breast and nipple; E11.42 Type 2 diabetes mellitus with diabetic polyneuropathy; F41.8 Other specified anxiety disorders; G47.33 Obstructive sleep apnea (adult) (pediatric); G47.00 Insomnia, unspecified; E78.5 Hyperlipidemia, unspecified; G43.909 Migraine, unspecified, not intractable, without status migrainosus; G89.4 Chronic pain syndrome; K58.9 Irritable bowel syndrome, unspecified; F17.210 Nicotine dependence, cigarettes, uncomplicated; E66.01 Morbid (severe) obesity due to excess calories; I11.9 Hypertensive heart disease without heart failure; L98.499 Non-pressure chronic ulcer of skin of other sites with unspecified severity; F12.20 Cannabis dependence, uncomplicated; R09.02 Hypoxemia; R09.89 Other specified symptoms and signs involving the circulatory and respiratory systems; E87.70 Fluid overload, unspecified; Z88.8 Allergy status to other drugs, medicaments and biological substances; Z88.0 Allergy status to penicillin; Z88.5 Allergy status to narcotic agent; Z79.4 Long term (current) use of insulin; Z79.84 Long term (current) use of oral hypoglycemic drugs; Z86.14 Personal history of Methicillin resistant Staphylococcus aureus infection; Z68.39 Body mass index [BMI] 39.0-39.9, adult
CPT/HCPCS: 36415; 71045; 76642; 80048; 80053; 80069; 80202; 82947; 83605; 83735; 83880; 85025; 85651; 86140; 87040; 87070; 87075; 87077; 87147; 87186; 87205; 88305; 93306; 94660; 94761; 94762; 96374; 96375; 96376; 99284-25; A9270; J0690; J0692; J1170; J1650; J1815; J1885; J1940; J2250; J2270; J2405; J2704; J3010; J3370; J7030; J7050; J7120

== ENCOUNTER 2024-05-03 12:07 | Emergency (ER) | payer SELFPAY ==
[~2024-05-03] VITALS: Ht 167.6 cm; Wt 136.1 kg
[~2024-05-03 12:07] MED LIST changes: +ACET500 PO; +ATOR40TA PO; +FURO20 PO; +GABA100 PO; +OXAYDO5 M1 PO; +TRAZ100 PO; +VENL150ER PO
[2024-05-03 12:30] VITALS: BP 139/100
[2024-05-03 13:13] LABS: BASOPHILS ABSOLUTE AUTO 0.08 K/mm3 (0.00-0.23); BASOPHILS PERCENT AUTO 1 % (0-2); EOSINOPHILS ABSOLUTE AUTO 0.25 K/mm3 (0.00-0.68); EOSINOPHILS PERCENT AUTO 2 % (0-6); Hematocrit 42.7 % (33.0-51.0); Hemoglobin 14.1 g/dL (11.5-16.0); IMMATURE GRAN ABSOLUTE AUTO 0.12 K/mm3 (0.00-0.10); IMMATURE GRAN PERCENT AUTO 1 % (0-1); LYMPHOCYTES ABSOLUTE AUTO 3.18 K/mm3 (0.84-5.20); LYMPHOCYTES PERCENT AUTO 24 % (21-46); MONOCYTES ABSOLUTE AUTO 0.98 K/mm3 (0.16-1.47); MONOCYTES PERCENT AUTO 7 % (4-13); Mean Corpuscular HGB 27.6 pg (26.0-34.0); Mean Corpuscular Volume 84 fL (80-100); Mean Platelet Volume 9.6 fL (9.1-12.4); NEUTROPHILS PERCENT AUTO 65 % (41-73); Platelet Count 415 K/mm3 (150-400); RDW Coefficient Variation 12.8 % (11.7-14.2); RDW Standard Deviation 39.1 fL (35.1-46.3); White Blood Cell Count 13.31 K/mm3 (4.00-11.30)
[2024-05-03] MEDS ORDERED: FentaNYL Citrate 50 MCG/ML 2 ML Injection IV ONE (13:20)
[2024-05-03] MEDS ORDERED: Ketorolac Tromethamine 30mg Vial IV ONE (13:20)
[2024-05-03] MEDS ORDERED: NS 1,000 ML IV SCH (13:20)
[2024-05-03 14:06] LABS: Albumin, Blood 3.4 g/dL (3.4-5.0); Albumin/Globulin Ratio 0.6 (0.8-1.8); Bilirubin, Total 0.5 mg/dL (0.1-1.0); Bun/Creatinine Ratio 19.8 (12.0-20.0); Calcium, Blood 9.4 mg/dL (8.5-10.1); Creatinine, Blood 0.76 mg/dL (0.40-1.00); Globulin, Blood 5.3 g/dL (2.2-4.0); Potassium, Blood 4.5 mmol/L (3.5-5.5); Total Protein, Blood 8.7 g/dL (6.4-8.2)
[2024-05-03] MEDS ORDERED: Cephalexin Monohydrate 500 MG Cap PO ONE (14:30)
[2024-05-03] MEDS ORDERED: CEPH500 PO (14:52)
== END 2024-05-03 15:09 | disposition home or self-care (01) ==
LOC: ER 12:07
PROVIDERS: Physician Assistant
DX: L03.317 Cellulitis of buttock (principal); I10 Essential (primary) hypertension; E11.40 Type 2 diabetes mellitus with diabetic neuropathy, unspecified; G47.33 Obstructive sleep apnea (adult) (pediatric); E78.5 Hyperlipidemia, unspecified; G43.909 Migraine, unspecified, not intractable, without status migrainosus; F17.210 Nicotine dependence, cigarettes, uncomplicated; W57.XXXA Bitten or stung by nonvenomous insect and other nonvenomous arthropods, initial encounter; Z79.899 Other long term (current) drug therapy; Z79.84 Long term (current) use of oral hypoglycemic drugs; Z88.0 Allergy status to penicillin; Z88.5 Allergy status to narcotic agent; Z88.8 Allergy status to other drugs, medicaments and biological substances
CPT/HCPCS: 72193; 80053; 85025; 96361; 96374-59; 96375-59; 99283-25; A9270; J1885; J3010; J7030; Q9967

== ENCOUNTER 2024-05-08 08:54 | Inpatient (IN) | payer SELFPAY ==
[~2024-05-08] VITALS: Ht 167.6 cm; Wt 127.0 kg
[2024-05-08] MEDS ORDERED: GABA300 (09:30)
[2024-05-08] MEDS ORDERED: METF500 PO (09:30)
[2024-05-08] MEDS ORDERED: OXYC5 PO (09:31)
[2024-05-08] MEDS ORDERED: TOPI25 PO (09:31)
[2024-05-08] MEDS ORDERED: Ondansetron HCl 2 MG / ML 2ML Vial IV ONE (10:20)
[2024-05-08] MEDS ORDERED: Morphine Sulfate 4 MG/1 ML Injection IV ONE (10:20)
[2024-05-08] MEDS ORDERED: Clindamycin 900mg in D5W 50ML 50 ML IV ONE (10:25)
[2024-05-08] MEDS ORDERED: NS 1,000 ML IV ONE (10:33)
[2024-05-08] MEDS ORDERED: NS 1,000 ML IV SCH ×2 (10:40→12:30)
[2024-05-08 10:48] LABS: BASOPHILS ABSOLUTE AUTO 0.09 K/mm3 (0.00-0.23); BASOPHILS PERCENT AUTO 1 % (0-2); EOSINOPHILS ABSOLUTE AUTO 0.32 K/mm3 (0.00-0.68); EOSINOPHILS PERCENT AUTO 3 % (0-6); Hematocrit 41.2 % (33.0-51.0); Hemoglobin 13.8 g/dL (11.5-16.0); IMMATURE GRAN ABSOLUTE AUTO 0.08 K/mm3 (0.00-0.10); IMMATURE GRAN PERCENT AUTO 1 % (0-1); LYMPHOCYTES ABSOLUTE AUTO 2.81 K/mm3 (0.84-5.20); LYMPHOCYTES PERCENT AUTO 26 % (21-46); MONOCYTES PERCENT AUTO 7 % (4-13); Mean Corpuscular HGB 27.3 pg (26.0-34.0); Mean Corpuscular HGB Conc 33.5 g/dL (31.5-36.5); Mean Corpuscular Volume 82 fL (80-100); NEUTROPHILS ABSOLUTE AUTO 6.77 K/mm3 (1.96-9.15); NEUTROPHILS PERCENT AUTO 63 % (41-73); Platelet Count 440 K/mm3 (150-400); RDW Coefficient Variation 12.7 % (11.7-14.2); RDW Standard Deviation 37.9 fL (35.1-46.3); Red Blood Cell Count 5.05 M/mm3 (3.80-5.20); White Blood Cell Count 10.77 K/mm3 (4.00-11.30)
[2024-05-08 11:07] LABS: Albumin, Blood 3.2 g/dL (3.4-5.0); Albumin/Globulin Ratio 0.7 (0.8-1.8); Bilirubin, Total 0.3 mg/dL (0.1-1.0); Bun/Creatinine Ratio 29.5 (12.0-20.0); Creatinine, Blood 0.58 mg/dL (0.40-1.00); Globulin, Blood 4.9 g/dL (2.2-4.0); Total Protein, Blood 8.1 g/dL (6.4-8.2)
[2024-05-08] MEDS ORDERED: Ondansetron HCl 2 MG / ML 2ML Vial IV PRN ×2 (12:30→13:50)
[2024-05-08] MEDS ORDERED: HYDROmorphone HCl/Pf 1MG SYR IV PRN ×2 (12:30→13:45)
[2024-05-08] MEDS ORDERED: OxyCODONE HCL 5 MG TAB PO PRN (13:45)
[2024-05-08 16:14] VITALS: BP 153/97
[2024-05-08] MEDS ORDERED: Insulin Human Lispro 100 Units/ML 3ML Syringe SC SCH (16:30)
[2024-05-08] MEDS ORDERED: MetFORMIN HCl 500 mg PO SCH (17:00)
--- NOTE | 2024-05-08 18:11 | NUR ---
SHIFT SUMMARY PT AOX4, INDEPENDENT. ADMITTED THIS SHIFT. PICTURE OF BUTTOCK WOUND IN THE CHART. MEDICATED FOR PAIN PER THE EMAR. CALLS AND MAKES HER NEEDS KNOWN. PLEASANT AND COOPERATIVE WITH CARE. PT REPOSITIONS HERSELF IN BED. CALL LIGHT WITHIN REACH, BED LOCKED AND IN THE LOWEST POSITION. WILL REPORT TO ONCOMING NURSE.
[2024-05-08] MEDS ORDERED: Clindamycin 600mg in D5W 50 ML IV SCH (19:00)
[2024-05-08 19:40] VITALS: BP 155/76
[2024-05-08] MEDS ORDERED: TraZODone HCl 100 MG Tab PO SCH (21:00)
[2024-05-08] MEDS ORDERED: Insulin Glargine-Yfgn 100 Unit/mL 3 ML SYR SC SCH (21:00)
[2024-05-08] MEDS ORDERED: Atorvastatin 40 MG Tab PO SCH (21:00)
[2024-05-08] MEDS ORDERED: Gabapentin 300 MG Cap PO SCH (21:00)
[2024-05-09] MEDS ORDERED: NS 1,000 ML IV SCH (00:20)
--- NOTE | 2024-05-09 03:26 | NUR ---
SHIFT SUMMARY PT. IS VERY PLEASANT, A&O X4, COOP WITH CARE, AND ABLE TO MAKE HER NEEDS KNOWN. PT. C/O LEFT BUTTOCK PAIN, MEDICATED ORDERED X2 DURING THIS SHIFT, (SEE EMAR) WITH GOOD EFFECTIVNESS. IV FLUIDS AND ABX INFUSING ORDERED. BG AT HS 189. NO ACUTE EVENTS/DISTRESS DURING THIS SHIFT. BED AT THE LOWEST POSITION, CALL LIGHT IN REACH. WILL HANDOFF TO THE INCOMING SHIFT NURSE.
[2024-05-09 04:21] VITALS: BP 142/75
[2024-05-09 04:45] LABS: BASOPHILS ABSOLUTE AUTO 0.06 K/mm3 (0.00-0.23); BASOPHILS PERCENT AUTO 1 % (0-2); EOSINOPHILS ABSOLUTE AUTO 0.31 K/mm3 (0.00-0.68); EOSINOPHILS PERCENT AUTO 4 % (0-6); Hematocrit 40.5 % (33.0-51.0); IMMATURE GRAN ABSOLUTE AUTO 0.09 K/mm3 (0.00-0.10); IMMATURE GRAN PERCENT AUTO 1 % (0-1); LYMPHOCYTES ABSOLUTE AUTO 3.38 K/mm3 (0.84-5.20); LYMPHOCYTES PERCENT AUTO 38 % (21-46); MONOCYTES ABSOLUTE AUTO 0.73 K/mm3 (0.16-1.47); MONOCYTES PERCENT AUTO 8 % (4-13); Mean Corpuscular HGB 27.4 pg (26.0-34.0); Mean Corpuscular HGB Conc 32.1 g/dL (31.5-36.5); Mean Corpuscular Volume 85 fL (80-100); Mean Platelet Volume 9.7 fL (9.1-12.4); NEUTROPHILS ABSOLUTE AUTO 4.28 K/mm3 (1.96-9.15); NEUTROPHILS PERCENT AUTO 48 % (41-73); Platelet Count 418 K/mm3 (150-400); RDW Standard Deviation 40.5 fL (35.1-46.3); Red Blood Cell Count 4.75 M/mm3 (3.80-5.20); White Blood Cell Count 8.85 K/mm3 (4.00-11.30)
[2024-05-09 05:03] LABS: Albumin, Blood 2.9 g/dL (3.4-5.0); Albumin/Globulin Ratio 0.7 (0.8-1.8); Bilirubin, Total 0.2 mg/dL (0.1-1.0); Bun/Creatinine Ratio 26.8 (12.0-20.0); Creatinine, Blood 0.6 mg/dL (0.40-1.00); Globulin, Blood 4.2 g/dL (2.2-4.0); Potassium, Blood 3.9 mmol/L (3.5-5.5); Total Protein, Blood 7.1 g/dL (6.4-8.2)
[2024-05-09 07:53] VITALS: BP 99/67
[2024-05-09] MEDS ORDERED: Gabapentin 300 MG Cap PO SCH (09:00)
[2024-05-09] MEDS ORDERED: Enoxaparin 40 MG/0.4 ML SYR SC SCH (09:00)
[2024-05-09] MEDS ORDERED: Topiramate 25 MG Tab PO SCH (09:00)
[2024-05-09] MEDS ORDERED: Venlafaxine HCl 75 MG CapCR PO SCH (09:00)
[2024-05-09 15:19] VITALS: BP 127/87
--- NOTE | 2024-05-09 16:01 | NUR ---
SHIFT SUMMARY PT RESTING QUIETLY AT START OF SHIFT. WOKE EASILY FOR CARE. NO C/O PAIN AT START OF SHIFT. PT LATER MEDICATED PER EMAR AND THRU OUT THE DAY. REDNESS AND SWELLING TO L BUTTOCKS INCREASED SLIGHTLY FROM ADMIT. IV ABX CONTINUE PER EMAR. DR ACKERMAN IN TO SEE PT AND DISCUSS PLAN OF CARE. SX CONSULT ORDERED. DR ACKERMAN CONTACTED DR BOURGEOIS WHO LATER CAME TO SEE PT. PT TO HAVE I&D TOMORROW. NPO AFTER MN TONIGHT. PT REPORTING NO BM FOR A COUPLE OF DAYS PRIOR TO ADMISSION. DR ACKERMAN NOTIFIED. NEW ORDERS PLACED. PT UP INDEPENDENTLY IN RM AND TO BTHRM. PT OFFERED ICE BAG FOR PAIN WELL; PT DECLINED. RESTING QUIETLY AT THIS TIME. CALL LT IN REACH.
[2024-05-09] MEDS ORDERED: Polyethylene Glycol 3350 17 gm PO SCH (16:15)
[2024-05-09 20:01] VITALS: BP 113/82
[2024-05-09] MEDS ORDERED: Sennosides 8.6 MG Tab PO SCH (21:00)
[2024-05-10] VITALS (16 sets, daily range): BP systolic 91–137; BP diastolic 55–115
--- NOTE | 2024-05-10 04:22 | NUR ---
SHIFT SUMMARY PT. C/O &07/29 LEFT BUTTOCK PAIN, PO OXYCODONE ADMINISTERED ORDERED T/O THIS SHIFT (SEE EMAR.) PT. REPORTS NOT EFFECTIVE LOWERING THE PAIN #. IV ABX INFUSED ORDERED, NS INFUSING 75MLS/HR. PT. HAS BEEN NPO AFTER MIDNIGHT FOR THE POSSIBLE I&D TODAY. HS B. PT. REPORTS LRG BM DURING THIS SHIFT. NO ACUTE DISTRESS/EVENTS DURING THIS SHIFT. PT. ABLE TO MAKE HER NEEDS KNOWN, BED AT THE LOWEST POSITION. WILL HANDOFF TO THE INCOMING SHIFT NURSE.
[2024-05-10] MEDS ORDERED: HYDROmorphone HCl/Pf 1MG SYR IV PRN (10:25)
[2024-05-10] MEDS ORDERED: Acetaminophen 500 MG Tab PO PRN (10:25)
[2024-05-10 10:43] LABS: BASOPHILS ABSOLUTE AUTO 0.06 K/mm3 (0.00-0.23); BASOPHILS PERCENT AUTO 1 % (0-2); EOSINOPHILS ABSOLUTE AUTO 0.26 K/mm3 (0.00-0.68); EOSINOPHILS PERCENT AUTO 4 % (0-6); Hematocrit 37.9 % (33.0-51.0); Hemoglobin 12.4 g/dL (11.5-16.0); IMMATURE GRAN ABSOLUTE AUTO 0.04 K/mm3 (0.00-0.10); IMMATURE GRAN PERCENT AUTO 1 % (0-1); LYMPHOCYTES ABSOLUTE AUTO 3.17 K/mm3 (0.84-5.20); LYMPHOCYTES PERCENT AUTO 43 % (21-46); MONOCYTES ABSOLUTE AUTO 0.46 K/mm3 (0.16-1.47); MONOCYTES PERCENT AUTO 6 % (4-13); Mean Corpuscular HGB 27.3 pg (26.0-34.0); Mean Corpuscular HGB Conc 32.7 g/dL (31.5-36.5); Mean Corpuscular Volume 83 fL (80-100); Mean Platelet Volume 9.1 fL (9.1-12.4); NEUTROPHILS ABSOLUTE AUTO 3.38 K/mm3 (1.96-9.15); NEUTROPHILS PERCENT AUTO 46 % (41-73); Platelet Count 349 K/mm3 (150-400); RDW Standard Deviation 39.4 fL (35.1-46.3); Red Blood Cell Count 4.55 M/mm3 (3.80-5.20); White Blood Cell Count 7.37 K/mm3 (4.00-11.30)
[2024-05-10] MEDS ORDERED: Lactated Ringer's 1,000 ML IV SCH (10:45)
[2024-05-10] MEDS ORDERED: Bupivacaine 0.5% Inj 10 ML Vial ONE (11:27)
[2024-05-10] MEDS ORDERED: Midazolam HCl 1MG / ML 2ML Vial IV ONE (11:35)
[2024-05-10] MEDS ORDERED: propofoL 20 ML IV ONE (11:49)
[2024-05-10] MEDS ORDERED: FentaNYL Citrate 50 MCG/ML 2 ML Injection ONE ×2 (11:49→12:44)
[2024-05-10] MEDS ORDERED: SuccINYLCHOLINE Chloride 100 MG/5 ML 5MLSYR ONE ×2 (11:52→12:00)
[2024-05-10] MEDS ORDERED: Phenylephrine HCl 100 MCG/ML-NS 10MLSYR (1MG/10ML) ONE (12:11)
[2024-05-10] MEDS ORDERED: Ondansetron HCl 2 MG / ML 2ML Vial ONE (12:43)
[2024-05-10] MEDS ORDERED: HYDROmorphone HCl/Pf 1MG SYR ONE (12:59)
[2024-05-10 13:25] LABS: Albumin, Blood 2.7 g/dL (3.4-5.0); Albumin/Globulin Ratio 0.7 (0.8-1.8); Bilirubin, Total 0.3 mg/dL (0.1-1.0); Bun/Creatinine Ratio 22.5 (12.0-20.0); Calcium, Blood 8.4 mg/dL (8.5-10.1); Creatinine, Blood 0.67 mg/dL (0.40-1.00); Globulin, Blood 3.8 g/dL (2.2-4.0); Potassium, Blood 4.1 mmol/L (3.5-5.5); Total Protein, Blood 6.5 g/dL (6.4-8.2)
--- NOTE | 2024-05-10 16:49 | NUR ---
PT ADMITTED FROM ED APPROX 1030. ALERT AND ORIENED X4 AND ABLE TO MAKE NEEDS KNOWN. DR. SALMON CONSULTED. PT IS BEDREST FOR TIME BEING. USES ROLLING WALK WITH SEAT AT BASELINE. DENIES N/V, C/O SOME DISCOMFORT IN ABDOMEN BUT PAINFUL DUE TO CHRONIC BACK PAIN. TREATED PER EMAR. FAMILY IS CURRENTLY AT BEDSIDE. ONE WET ATTENDS, NO STOOL, NO BLOOD NOTED.
--- NOTE | 2024-05-10 17:15 | NUR ---
PT S/P I/D OF L BUTTOCK. PAIN WELL CONTROLLED WITH CURRENT REGIMEN. INDEPENDENT IN ROOM. PT ATE ALL OF LUNCH AND SNACK. IV FLUIDS DISCONTINUED. PLAN TO DISCHARGE TOMORROW. ALERT AND ORIENTED AND ABLE TO MAKE NEED KNOWN. DENIES CHEST PAIN AND SOB.
[2024-05-10] MEDS ORDERED: NS 250 ML IV PRN (18:10)
[2024-05-10] MEDS ORDERED: Insulin Glargine-Yfgn 100 Unit/mL 3 ML SYR SC SCH (21:00)
[2024-05-11 03:03] VITALS: BP 138/80
[2024-05-11 05:48] LABS: BASOPHILS ABSOLUTE AUTO 0.04 K/mm3 (0.00-0.23); BASOPHILS PERCENT AUTO 0 % (0-2); EOSINOPHILS ABSOLUTE AUTO 0.01 K/mm3 (0.00-0.68); EOSINOPHILS PERCENT AUTO 0 % (0-6); Hematocrit 37.1 % (33.0-51.0); Hemoglobin 12.2 g/dL (11.5-16.0); IMMATURE GRAN ABSOLUTE AUTO 0.11 K/mm3 (0.00-0.10); IMMATURE GRAN PERCENT AUTO 1 % (0-1); LYMPHOCYTES ABSOLUTE AUTO 2.38 K/mm3 (0.84-5.20); LYMPHOCYTES PERCENT AUTO 19 % (21-46); MONOCYTES ABSOLUTE AUTO 0.59 K/mm3 (0.16-1.47); MONOCYTES PERCENT AUTO 5 % (4-13); Mean Corpuscular HGB 27.4 pg (26.0-34.0); Mean Corpuscular HGB Conc 32.9 g/dL (31.5-36.5); Mean Corpuscular Volume 83 fL (80-100); Mean Platelet Volume 9.8 fL (9.1-12.4); NEUTROPHILS ABSOLUTE AUTO 9.11 K/mm3 (1.96-9.15); NEUTROPHILS PERCENT AUTO 75 % (41-73); Platelet Count 389 K/mm3 (150-400); RDW Coefficient Variation 12.9 % (11.7-14.2); RDW Standard Deviation 39.1 fL (35.1-46.3); Red Blood Cell Count 4.45 M/mm3 (3.80-5.20); White Blood Cell Count 12.24 K/mm3 (4.00-11.30)
--- NOTE | 2024-05-11 05:56 | NUR ---
DISPENSER OPERATOR SUMMARY PT WAS EDUCATED ON HOW TO HAVE A BOWEL MOVEMENT WITHOUT CONTAMINATING HER WOUND. SHE HAS BEEN ASKING FOR HER PAIN MEDS SOON THEY ARE AVAILABLE. SHE IS ANXIOUS ABOUT POSSIBLY BEING DISCHARGED TODAY.
[2024-05-11 06:43] LABS: Albumin, Blood 2.9 g/dL (3.4-5.0); Albumin/Globulin Ratio 0.7 (0.8-1.8); Bilirubin, Total 0.2 mg/dL (0.1-1.0); Bun/Creatinine Ratio 32.7 (12.0-20.0); Calcium, Blood 8.5 mg/dL (8.5-10.1); Creatinine, Blood 0.58 mg/dL (0.40-1.00); Globulin, Blood 4.2 g/dL (2.2-4.0); Potassium, Blood 4.5 mmol/L (3.5-5.5); Total Protein, Blood 7.1 g/dL (6.4-8.2)
[2024-05-11 07:06] VITALS: BP 130/70
[2024-05-11] MEDS ORDERED: SULFAMETHOXAZO1 EAC1 PO (12:46)
--- NOTE | 2024-05-11 14:29 | NUR ---
DISCHARGE PATIENT A&OX4, COOPERATIVE, AND PLEASANT. DENIED ANY CP/PRESSURE, HEADACHE, DIZZINESS, OR SOB. PAIN MEDICATED PER EMAR PROTOCOL. REPORTED N/T OF BLE R/T DIABETIC NEUROPATHY. NO ACUTE EVENTS THIS SHIFT. LBM LAST NIGHT. IV REMOVED BY VERIFICATION LEAD. DISCHARGE PACKET REVIEWED WITH PATIENT. NO QUESTIONS OR CONCERNS. FOLLOW UP APPT WITH PCP VERIFIED WITH PATIENT. PATIENT PICKED UP BY AND DISCHARGED AT 1430.
== END 2024-05-11 14:19 | disposition home or self-care (01) | DRG 603 ==
LOC: ER 08:54 → MEDS 12:32 → EDBEDREQ 15:09 → EDBEDREQTM 15:09 → MEDS 16:10
PROVIDERS: Emergency Medicine; Family Medicine; Surgery; ADMIT Internal Medicine
PROC: 0J993ZZ Drainage of Buttock Subcutaneous Tissue and Fascia, Percutaneous Approach (ICD-10-PCS; principal; 2024-05-10 12:00)
DX: L03.317 Cellulitis of buttock (principal); Z68.42 Body mass index [BMI] 45.0-49.9, adult; L02.31 Cutaneous abscess of buttock; E78.5 Hyperlipidemia, unspecified; F41.8 Other specified anxiety disorders; G47.33 Obstructive sleep apnea (adult) (pediatric); G47.00 Insomnia, unspecified; I10 Essential (primary) hypertension; E66.9 Obesity, unspecified; Z86.14 Personal history of Methicillin resistant Staphylococcus aureus infection; R74.01 Elevation of levels of liver transaminase levels; E11.40 Type 2 diabetes mellitus with diabetic neuropathy, unspecified; G43.909 Migraine, unspecified, not intractable, without status migrainosus; Z90.710 Acquired absence of both cervix and uterus; Z90.49 Acquired absence of other specified parts of digestive tract; Z90.89 Acquired absence of other organs; Z98.51 Tubal ligation status; Z79.4 Long term (current) use of insulin; Z79.84 Long term (current) use of oral hypoglycemic drugs; Z79.899 Other long term (current) drug therapy; Z88.0 Allergy status to penicillin; Z88.8 Allergy status to other drugs, medicaments and biological substances; Z87.891 Personal history of nicotine dependence; E11.65 Type 2 diabetes mellitus with hyperglycemia
CPT/HCPCS: 36415; 72193; 80053; 82947; 83605; 85025; 87040; 87070; 87075; 87077; 87147; 87186; 87205; 96361; 96365-59; 96375-59; 96376-59; 99284-25; A9270; J0330; J1170; J1650; J1815; J2250; J2270; J2371; J2405; J2704; J3010; J7030; J7050; J7120; Q9967

== ENCOUNTER → 2024-06-17 | Outpatient (CLI) | payer SELFPAY ==
[~2024-06-17] MED LIST changes: +GABA300; +OXYC5 PO; +SULFAMETHOXAZO1 EAC1 PO; +TOPI25 PO
== END ==
LOC: LAB SHORT 18:34
DX: N39.0 Urinary tract infection, site not specified (principal)
CPT/HCPCS: 87077; 87086; 87186

== ENCOUNTER 2025-01-04 12:20 | Emergency (ER) | payer SELFPAY ==
[~2025-01-04] VITALS: Ht 162.6 cm; Wt 139.7 kg
[2025-01-04 14:25] LABS: BASOPHILS ABSOLUTE AUTO 0.08 K/mm3 (0.00-0.23); BASOPHILS PERCENT AUTO 1 % (0-2); EOSINOPHILS ABSOLUTE AUTO 0.24 K/mm3 (0.00-0.68); EOSINOPHILS PERCENT AUTO 2 % (0-6); Hemoglobin 13.6 g/dL (11.5-16.0); IMMATURE GRAN ABSOLUTE AUTO 0.08 K/mm3 (0.00-0.10); IMMATURE GRAN PERCENT AUTO 1 % (0-1); LYMPHOCYTES ABSOLUTE AUTO 2.99 K/mm3 (0.84-5.20); LYMPHOCYTES PERCENT AUTO 23 % (21-46); MONOCYTES ABSOLUTE AUTO 0.92 K/mm3 (0.16-1.47); MONOCYTES PERCENT AUTO 7 % (4-13); Mean Corpuscular HGB 27.3 pg (26.0-34.0); Mean Corpuscular HGB Conc 32.4 g/dL (31.5-36.5); Mean Corpuscular Volume 84 fL (80-100); Mean Platelet Volume 9.9 fL (9.1-12.4); NEUTROPHILS ABSOLUTE AUTO 8.95 K/mm3 (1.96-9.15); NEUTROPHILS PERCENT AUTO 68 % (41-73); Platelet Count 357 K/mm3 (150-400); RDW Coefficient Variation 13.5 % (11.7-14.2); RDW Standard Deviation 41.6 fL (35.1-46.3); Red Blood Cell Count 4.98 M/mm3 (3.80-5.20); White Blood Cell Count 13.26 K/mm3 (4.00-11.30)
[2025-01-04 14:43] LABS: Albumin, Blood 3.2 g/dL (3.4-5.0); Albumin/Globulin Ratio 0.7 (0.8-1.8); Bilirubin, Total 0.6 mg/dL (0.1-1.0); Bun/Creatinine Ratio 30.9 (12.0-20.0); Calcium, Blood 8.9 mg/dL (8.5-10.1); Creatinine, Blood 0.52 mg/dL (0.40-1.00); Globulin, Blood 4.8 g/dL (2.2-4.0); Potassium, Blood 4.5 mmol/L (3.5-5.5)
[2025-01-04] MEDS ORDERED: VENLAFAXINE HC225 MG PO (15:29)
[2025-01-04] MEDS ORDERED: OxyCODONE HCL 5 MG TAB PO ONE (15:55)
[2025-01-04] MEDS ORDERED: HYDR1TAB94 PO (15:57)
[2025-01-04] MEDS ORDERED: CEPH500 PO (15:57)
[2025-01-04] MEDS ORDERED: SULTRIDS PO (15:57)
[2025-01-04 16:36] VITALS: BP 101/56
== END 2025-01-04 16:35 | disposition home or self-care (01) ==
LOC: ER 12:20
PROVIDERS: Physician Assistant
DX: L03.317 Cellulitis of buttock (principal); G43.909 Migraine, unspecified, not intractable, without status migrainosus; F17.210 Nicotine dependence, cigarettes, uncomplicated; Z88.0 Allergy status to penicillin; Z88.8 Allergy status to other drugs, medicaments and biological substances; Z79.4 Long term (current) use of insulin; Z79.84 Long term (current) use of oral hypoglycemic drugs; Z79.899 Other long term (current) drug therapy
CPT/HCPCS: 72193; 80053; 85025; 99284-25; A9270; Q9967

== ENCOUNTER 2025-01-08 16:13 | Inpatient (IN) | payer SELFPAY ==
[~2025-01-08] VITALS: Ht 167.6 cm; Wt 140.5 kg
[~2025-01-08 16:13] MED LIST changes: +HYDR1TAB94 PO; +VENLAFAXINE HC225 MG PO
[2025-01-08] MEDS ORDERED: Ondansetron HCl 2 MG / ML 2ML Vial IV ONE (18:45)
[2025-01-08] MEDS ORDERED: Morphine Sulfate 4 MG/1 ML Injection IV ONE (18:45)
[2025-01-08] MEDS ORDERED: OxyCODONE HCL 5 MG TAB PO ONE (18:45)
[2025-01-08] MEDS ORDERED: CefTRIAXone Sodium 1,000 MG in NS 100 ML IV ONE (18:55)
[2025-01-08 19:00] LABS: BASOPHILS ABSOLUTE AUTO 0.08 K/mm3 (0.00-0.23); BASOPHILS PERCENT AUTO 1 % (0-2); EOSINOPHILS ABSOLUTE AUTO 0.27 K/mm3 (0.00-0.68); EOSINOPHILS PERCENT AUTO 3 % (0-6); Hematocrit 41.2 % (33.0-51.0); Hemoglobin 13.1 g/dL (11.5-16.0); IMMATURE GRAN ABSOLUTE AUTO 0.08 K/mm3 (0.00-0.10); IMMATURE GRAN PERCENT AUTO 1 % (0-1); LYMPHOCYTES ABSOLUTE AUTO 2.75 K/mm3 (0.84-5.20); LYMPHOCYTES PERCENT AUTO 26 % (21-46); MONOCYTES ABSOLUTE AUTO 0.66 K/mm3 (0.16-1.47); MONOCYTES PERCENT AUTO 6 % (4-13); Mean Corpuscular HGB 26.8 pg (26.0-34.0); Mean Corpuscular HGB Conc 31.8 g/dL (31.5-36.5); Mean Corpuscular Volume 84 fL (80-100); Mean Platelet Volume 9.5 fL (9.1-12.4); NEUTROPHILS ABSOLUTE AUTO 6.87 K/mm3 (1.96-9.15); NEUTROPHILS PERCENT AUTO 64 % (41-73); Platelet Count 440 K/mm3 (150-400); RDW Coefficient Variation 13.2 % (11.7-14.2); Red Blood Cell Count 4.89 M/mm3 (3.80-5.20); White Blood Cell Count 10.71 K/mm3 (4.00-11.30)
[2025-01-08] MEDS ORDERED: Vancomycin HCL 2,500 MG in NS 500 ML IV ONE (19:00)
[2025-01-08 19:16] LABS: Albumin, Blood 2.9 g/dL (3.4-5.0); Albumin/Globulin Ratio 0.6 (0.8-1.8); Bilirubin, Total 0.2 mg/dL (0.1-1.0); Bun/Creatinine Ratio 24.8 (12.0-20.0); Creatinine, Blood 0.69 mg/dL (0.40-1.00); Globulin, Blood 4.7 g/dL (2.2-4.0); Potassium, Blood 4.5 mmol/L (3.5-5.5); Total Protein, Blood 7.6 g/dL (6.4-8.2)
[2025-01-08] MEDS ORDERED: NS 1,000 ML IV SCH (19:35)
[2025-01-08] MEDS ORDERED: FLU VACC TS2024-25(6MOS UP)/PF 45 MCG/0.5 ML SYRINGE IM ONE (20:35)
[2025-01-08] MEDS ORDERED: Ondansetron HCl 2 MG / ML 2ML Vial IV PRN (20:35)
[2025-01-08] MEDS ORDERED: Acetaminophen 325 MG TABLET PO PRN (20:35)
[2025-01-08] MEDS ORDERED: HYDROcodone 5-APAP 325 TAB PO PRN (20:40)
[2025-01-08] MEDS ORDERED: Insulin Human Lispro 100 Units/ML 3ML Syringe SC SCH (21:00)
[2025-01-08] MEDS ORDERED: VENL150ER PO (21:26)
[2025-01-08] MEDS ORDERED: Clindamycin 900mg in D5W 50ML 50 ML IV ONE (21:30)
[2025-01-08] MEDS ORDERED: Insulin Glargine-Yfgn 100 Unit/mL 3 ML SYR SC SCH (22:00)
[2025-01-08 22:05] VITALS: BP 125/77
[2025-01-08] MEDS ORDERED: NS 250 ML IV PRN (22:30)
[2025-01-08] MEDS ORDERED: FentaNYL Citrate 50 MCG/ML 2 ML Injection IV PRN (23:14)
[2025-01-08] MEDS ORDERED: OxyCODONE HCL 5 MG TAB PO PRN (23:20)
[2025-01-09] VITALS (14 sets, daily range): BP systolic 93–148; BP diastolic 45–84
[2025-01-09] MEDS ORDERED: TraZODone HCl 100 MG Tab PO PRN (00:42)
[2025-01-09] MEDS ORDERED: Vancomycin HCL 1,250 MG in NS 250 ML IV SCH (04:00)
[2025-01-09] MEDS ORDERED: OxyCODONE HCL 5 MG TAB PO PRN (04:10)
[2025-01-09 05:32] LABS: BASOPHILS ABSOLUTE AUTO 0.07 K/mm3 (0.00-0.23); BASOPHILS PERCENT AUTO 1 % (0-2); EOSINOPHILS PERCENT AUTO 3 % (0-6); Hemoglobin 12.8 g/dL (11.5-16.0); IMMATURE GRAN ABSOLUTE AUTO 0.07 K/mm3 (0.00-0.10); IMMATURE GRAN PERCENT AUTO 1 % (0-1); LYMPHOCYTES ABSOLUTE AUTO 3.72 K/mm3 (0.84-5.20); LYMPHOCYTES PERCENT AUTO 42 % (21-46); MONOCYTES ABSOLUTE AUTO 0.59 K/mm3 (0.16-1.47); MONOCYTES PERCENT AUTO 7 % (4-13); Mean Corpuscular HGB 27.1 pg (26.0-34.0); Mean Corpuscular Volume 85 fL (80-100); NEUTROPHILS PERCENT AUTO 46 % (41-73); Platelet Count 386 K/mm3 (150-400); RDW Coefficient Variation 13.3 % (11.7-14.2); RDW Standard Deviation 41.7 fL (35.1-46.3); Red Blood Cell Count 4.72 M/mm3 (3.80-5.20); White Blood Cell Count 8.85 K/mm3 (4.00-11.30)
[2025-01-09 05:54] LABS: Albumin, Blood 2.8 g/dL (3.4-5.0); Albumin/Globulin Ratio 0.7 (0.8-1.8); Bilirubin, Total 0.2 mg/dL (0.1-1.0); Bun/Creatinine Ratio 22.6 (12.0-20.0); Calcium, Blood 8.7 mg/dL (8.5-10.1); Creatinine, Blood 0.58 mg/dL (0.40-1.00); Globulin, Blood 4.3 g/dL (2.2-4.0); Potassium, Blood 4.2 mmol/L (3.5-5.5); Total Protein, Blood 7.1 g/dL (6.4-8.2)
--- NOTE | 2025-01-09 07:06 | NUR ---
SHIFT SUMMARY PT ARRIVED FROM ER AND ORIENTED TO ROOM. A&OX4 AND PLEASANT. PT C/O PAIN IN RIGHT BUTTOCK. MEDICATED PER EMAR WITH GOOD EFFECT. ABCESS ON BUTTOCK OUTLINED WITH PEN AND PICTURES IN CHART. DR ST, ANSWERING SERVICE, CALLED WITH SURGERY CONSULT. IV ABX GIVEN PER EMAR. VSS. BED IN LOWEST POSITION AND CALL LIGHT IN REACH.
--- NOTE | 2025-01-09 07:43 | NUR ---
CONSULT NOTE: CALLED DR. ST (GENERAL SURGEON) TO F/U THE CONSULT FOR R GLUTEAL ABSCESS WAS PLACED BY NOC RN, PATRICIO AND TO VERIFY THE PLAN OF CARE. RECEIVED ORDER FROM DR. ST TO KEEP NPO FOR NOW AND HE WILL COME TO SEE THE PATIENT THIS AM.
[2025-01-09] MEDS ORDERED: Miconazole Nitrate 2% 85 GM PWD TOP SCH (09:00)
[2025-01-09] MEDS ORDERED: Ketorolac Tromethamine 15mg Vial IV PRN (10:45)
--- NOTE | 2025-01-09 14:44 | NUR ---
NOTE: PATIENT LEFT THE ROOM VIA GURNEY AT THIS TIME TO DAY SURGERY.
[2025-01-09] MEDS ORDERED: Lactated Ringer's 1,000 ML IV ONE (14:52)
[2025-01-09] MEDS ORDERED: propofoL 20 ML IV ONE (15:52)
[2025-01-09] MEDS ORDERED: FentaNYL Citrate 50 MCG/ML 2 ML Injection ONE (15:52)
[2025-01-09] MEDS ORDERED: SuccINYLCHOLINE Chloride 100 MG/5 ML 5MLSYR ONE (15:53)
[2025-01-09] MEDS ORDERED: Ketorolac Tromethamine 30mg Vial ONE (15:54)
[2025-01-09] MEDS ORDERED: Ondansetron HCl 2 MG / ML 2ML Vial ONE ×2 (15:55→17:02)
[2025-01-09] MEDS ORDERED: Dexamethasone Sod Phos 10 MG/ML 1ML VIAL ONE (15:55)
[2025-01-09] MEDS ORDERED: Midazolam HCl 1MG / ML 2ML Vial ONE (15:58)
[2025-01-09] MEDS ORDERED: HYDROmorphone HCl/Pf 1MG SYR ONE (16:43)
[2025-01-09] MEDS ORDERED: CefTRIAXone Sodium 1,000 MG in NS 100 ML IV SCH (18:00)
--- NOTE | 2025-01-09 18:11 | NUR ---
SHIFT SUMMARY: PATIENT A/OX4, PLEASANT AND COOPERATIVE c CARE. PATIENT DENIES CP/PRESSURE, SOB, N/V AND DIZZINESS. PATIENT REPORTS PAIN TO R BUTTOCK-ABSCESS, MEDICATED FOR PAIN PER EMAR c MOD EFFECT. PATIENT ARRIVES IN ROOM VIA GURNEY AT 1720 FROM PACU, FOR I&D TO R BUTTOCK DONE BY DR. ST, DRESSING DRY AND INTACT TO AFFECTED SITE. RECEIVED BEDSIDE REPORTS FROM [facility] DAY SURGERY RN. PATIENT POST-OP VITALS TAKEN. PATIENT RECEIVED IV ABX. PATIENT STARTED ON CC/HH DIET FOR DINNER, TOLERATING DIET WELL WITHOUT ANY ISSUE SWALLOWING. PATIENT CONTINENT OF BLADDER, AMBULATES TO BATHROOM c SBA/IND. BED IN LOWEST POSITIONED. CALL LIGHT IN REACH.
[2025-01-09] MEDS ORDERED: Lactobacil 2-S.Thermo-Bifido 1 1 Cap PO SCH (21:00)
[2025-01-09] MEDS ORDERED: TraZODone HCl 100 MG Tab PO SCH (23:25)
[2025-01-10] MEDS ORDERED: Vancomycin HCL 1,750 MG in NS 500 ML IV SCH
[2025-01-10 03:03] VITALS: BP 131/66
--- NOTE | 2025-01-10 06:33 | NUR ---
SHIFT SUMMARY PT IS ADMITTED FOR RIGHT GLUTEAL ABSCESS. PT IS ALERT AND ORIENTED TIMES 4. PT HAS LEFT UPPER ARM POWERGLIDE. PT IS NOT ON TELE, DOES HAVE NORMAL SALINE RUNNING TKO. PT IS UP WITH STAFF OBSERVATION, NOT TO GET UP WITHOUT STAFF VISUAL. PT IS CONTINENT OF URINE AND BOWEL. PT IS AC/HS BLOOD SUGAR. PT HAS ADA DIET BED IN LOW POSITION, CALL LIGHT WITHIN REACH, RAILS TIMES 2.
[2025-01-10 07:22] VITALS: BP 126/65
[2025-01-10 08:12] LABS: BASOPHILS ABSOLUTE AUTO 0.05 K/mm3 (0.00-0.23); BASOPHILS PERCENT AUTO 1 % (0-2); EOSINOPHILS ABSOLUTE AUTO 0.31 K/mm3 (0.00-0.68); EOSINOPHILS PERCENT AUTO 4 % (0-6); Hematocrit 35.9 % (33.0-51.0); Hemoglobin 11.4 g/dL (11.5-16.0); IMMATURE GRAN ABSOLUTE AUTO 0.03 K/mm3 (0.00-0.10); IMMATURE GRAN PERCENT AUTO 0 % (0-1); LYMPHOCYTES ABSOLUTE AUTO 2.56 K/mm3 (0.84-5.20); LYMPHOCYTES PERCENT AUTO 33 % (21-46); MONOCYTES ABSOLUTE AUTO 0.63 K/mm3 (0.16-1.47); MONOCYTES PERCENT AUTO 8 % (4-13); Mean Corpuscular HGB 27.1 pg (26.0-34.0); Mean Corpuscular HGB Conc 31.8 g/dL (31.5-36.5); Mean Corpuscular Volume 85 fL (80-100); Mean Platelet Volume 9.1 fL (9.1-12.4); NEUTROPHILS ABSOLUTE AUTO 4.18 K/mm3 (1.96-9.15); NEUTROPHILS PERCENT AUTO 54 % (41-73); Platelet Count 357 K/mm3 (150-400); RDW Coefficient Variation 13.4 % (11.7-14.2); RDW Standard Deviation 41.7 fL (35.1-46.3); Red Blood Cell Count 4.21 M/mm3 (3.80-5.20); White Blood Cell Count 7.76 K/mm3 (4.00-11.30)
[2025-01-10 08:38] LABS: Bun/Creatinine Ratio 22.4 (12.0-20.0); Calcium, Blood 8.5 mg/dL (8.5-10.1); Creatinine, Blood 0.62 mg/dL (0.40-1.00); Potassium, Blood 4.3 mmol/L (3.5-5.5)
[2025-01-10] MEDS ORDERED: OxyCODONE HCL 5 MG TAB PO PRN (12:05)
[2025-01-10] MEDS ORDERED: Bisacodyl 10 MG Supp PR PRN (12:05)
[2025-01-10] MEDS ORDERED: Magnesium Hydroxide Conc 10 ML UDC PO PRN (12:05)
[2025-01-10 15:49] VITALS: BP 153/69
--- NOTE | 2025-01-10 17:42 | NUR ---
SHIFT SUMMARY PT CONT LEVEL OF CARE WITH NO ACUTE CHANGES NOTED. THIS NURSE CALLED AND SPOKE WITH DR ST RE: DSG AND INCISION SITE. DR ST CAME AND SAW PT AND STATED THAT HE WOULD LEAVE DSG TIL TOMORROW AND WOULD CHANGE TOMORROW. HE ALSO STATED THAT PT IS CLEARED FROM SUREGERY AND THAT HE WOULD NEED TO SEE HER IN 1WK TO TAKE OUT SONAM DRAIN.
[2025-01-10 19:13] VITALS: BP 146/85
[2025-01-10] MEDS ORDERED: Docusate Sodium 100 MG Cap PO SCH (21:00)
[2025-01-10] MEDS ORDERED: TraZODone HCl 100 MG Tab PO SCH (21:00)
[2025-01-10] MEDS ORDERED: Sennosides 8.6 MG Tab PO SCH (21:00)
[2025-01-10 23:55] LABS: Vancomycin, Trough 19.3 ug/mL (5.0-10.0)
[2025-01-11] MEDS ORDERED: Vancomycin HCL 1,500 MG in NS 250 ML IV SCH (00:10)
--- NOTE | 2025-01-11 03:36 | NUR ---
BONDING EQUIPMENT OPERATOR SUMMARY VSS. ALERT AND ORIENTED. COOPERATIVE AND CHEERFUL WITH CARE AND INTERACTIONS WITH STAFF. DRESSING ON BUTTOCK, SLIGHT BLEEDING BUT INTACT. SONAM DRAIN IN USE. ABLE TO REPOSITION SELF IN BED AND UP FOR SELF CARE. HAS BEEN RESTING QUIETLY WITH OCCASIONAL INTERRUPTIONS FOR NAUSEA AND PAIN MEDS. IV ANTIBIOTICS, ETC INFUSING ORDERED - SEE MAR FOR DETAILS. REMAINS ON CONTACT ISOLATION PRECAUTIONS FOR HX MRSA. CALL LIGHT IN REACH, RAILS UP X 2 AND BVED IN LOW POSITION FOR SAFETY. WILL CONTINUE TO MONITOR
[2025-01-11 03:50] VITALS: BP 134/74
[2025-01-11 07:46] VITALS: BP 152/62
--- NOTE | 2025-01-11 11:35 | NUR ---
NOTE: SPOKE WITH [facility], ASKING IF DR. TORRES IS TO COME IN AND DO A DRESSING CHANGE TODAY OR NOT. DR. MIRANDA WANTS TO SEND THE PT HOME BUT DR. TORRES MAY WANT TO SEE THE DRAIN BEFORE DC. EAP CONSULTANT SAID SHE WOULD SEND DR. TORRES A MESSAGE AND HE WOULD GET BACK TO THIS NURSE.
[2025-01-11] MEDS ORDERED: OXYC5 PO (15:07)
[2025-01-11] MEDS ORDERED: VISBIOME 112.51 EACH PO (15:07)
[2025-01-11] MEDS ORDERED: Acetaminophen650 M1 PO (15:07)
[2025-01-11] MEDS ORDERED: SULTRIDS PO (15:08)
[2025-01-11 15:50] VITALS: BP 173/81
--- NOTE | 2025-01-11 16:15 | NUR ---
DISCHARGE NOTE PT DISCHARGED TO HOME, PICKED UP BY HER SON. PG REMOVED. DRESSING TO GLUTEAL FOLD COMPLETED BEFORE DISCHARGE. MEDICATIONS FAXED TO THE PHARMACY OF HER CHOICE. DISCHARGE EDUCATION AND INFORMATION PROVIDED. PERSONAL BELONGINGS RETURNED.
== END 2025-01-11 16:11 | disposition home or self-care (01) | DRG 603 ==
LOC: ER 16:13 → MEDS 16:14 → EDBEDREQ 21:20 → EDBEDREQTM 21:20 → MEDS 22:01
PROVIDERS: Family Medicine; Physician Assistant; Surgery; ADMIT Internal Medicine
PROC: 0J990ZZ Drainage of Buttock Subcutaneous Tissue and Fascia, Open Approach (ICD-10-PCS; principal; 2025-01-09 13:30)
DX: L02.31 Cutaneous abscess of buttock (principal); Z68.42 Body mass index [BMI] 45.0-49.9, adult; L73.2 Hidradenitis suppurativa; E78.5 Hyperlipidemia, unspecified; I10 Essential (primary) hypertension; G47.33 Obstructive sleep apnea (adult) (pediatric); E11.40 Type 2 diabetes mellitus with diabetic neuropathy, unspecified; G43.909 Migraine, unspecified, not intractable, without status migrainosus; K58.9 Irritable bowel syndrome, unspecified; F17.210 Nicotine dependence, cigarettes, uncomplicated; L03.317 Cellulitis of buttock; E11.65 Type 2 diabetes mellitus with hyperglycemia; E66.9 Obesity, unspecified; Z86.14 Personal history of Methicillin resistant Staphylococcus aureus infection; Z88.0 Allergy status to penicillin; Z88.8 Allergy status to other drugs, medicaments and biological substances; Z79.84 Long term (current) use of oral hypoglycemic drugs; Z79.4 Long term (current) use of insulin
CPT/HCPCS: 36415; 76857; 80048; 80053; 80202; 82565; 82947; 83605; 85025; 93005; 93010; 96365; 96366; 96375; 99285-25; A9270; G0378; J0330; J0696; J1100; J1171; J1815; J1885; J2250; J2270; J2405; J2704; J3010; J3370; J7030; J7040; J7050; J7120